=== PATIENT | female | born 1950 | race Caucasian/White ===

== ENCOUNTER → 2021-01-16 | Outpatient (CLI) | payer MEDICARE ==
--- NOTE | 2021-01-16 15:56 | CTL ---
EXAMINATION TYPE: CT Low Dose Lung DATE OF EXAM ORDERED: 01/16/2021 HISTORY: Personal tobacco use. Lung cancer screening CT DLP: [address] CTDI: 1.41 mGy Automated exposure control for dose reduction was used. SCREENING VISIT: Initial COMPARISON: None TECHNIQUE: Low dose computed tomography scan was performed through the chest at 1 mm thick sections a nd reconstructed images in the coronal plane at [address] DIAGNOSTIC QUALITY: Limited, but interpretable FINDINGS: LUNG NODULES: None. Bilateral apical thickening is present. LUNGS: COPD: Severity: None Fibrosis: Severity: None Lymph nodes: None Other findings: None RIGHT PLEURAL SPACE: Effusion: None Calcification: None Thickening: Mild anterior lower lobe thickening is present with adjacent stranding Pneumothorax: None LEFT PLEURAL SPACE: Effusion: None Calcification: None Thickening: Mild left pleural thickening is noted with some adjacent stranding. Pneumothorax: None HEART: Heart Size: Normal Coronary calcification: Mild Pericardial effusion: None OTHER FINDINGS: Upper abdomen: Normal Bony thorax: Normal Supraclavicular region: Normal Other: Ascending thoracic aorta at the level the main pulmonary artery measures 3.2 cm. The main pul monary artery at the bifurcation measures 2.2 cm. IMPRESSION: 1. Bilateral apical thickening can be related to scarring. Follow-up in 6 months to confirm stability . 2. Mild pleural thickening along the anterior lateral lung trujillo with some adjacent stranding. This could be reevaluated with a follow-up exam. FOLLOW UP CT CHEST RECOMMENDATION: Yes, follow-up standard CT chest with contrast [address] LUNG RAD: Lung-Rad 3 Probably Benign
== END | disposition home or self-care (01) ==
LOC: RADCTMAIN 13:22
PROVIDERS: ATTEND Family Medicine
DX: Z12.2 Encounter for screening for malignant neoplasm of respiratory organs (principal); J92.9 Pleural plaque without asbestos; F17.210 Nicotine dependence, cigarettes, uncomplicated
CPT/HCPCS: 71271

== ENCOUNTER 2021-02-07 21:57 | Emergency (ER) | payer MEDICARE ==
[2021-02-07 22:25] VITALS: TEMP 97.6
[2021-02-07 23:35] LABS: Appearance,Urine Clear (Clear); Color,Urine Yellow
[2021-02-07 23:36] LABS: Bilirubin,Urine Negative (Negative); Blood,Urine Negative (Negative); Glucose,Urine (UA) Negative (Negative); Ketones,Urine Negative (Negative); Leukocyte Esterase,Urine Negative (Negative); Nitrite,Urine Negative (Negative); PH, Urine 5.5 (5.0-8.0); Protein,Urine Negative (Negative); Specific Gravity,Urine 1.015 (1.001-1.035); Urobilinogen,Urine <2.0 mg/dL (<2.0)
--- NOTE | 2021-02-07 23:38 | CT ---
EXAMINATION TYPE: CT brain wo con DATE OF EXAM: 02/07/2021 COMPARISON: None HISTORY: Weakness CT DLP: 1088.40 mGycm Automated exposure control for dose reduction was used. Ventricles have normal size. There is no mass effect nor midline shift. There is no sign of intracran ial hemorrhage. The calvarium is intact. The skull base is intact. IMPRESSION: Negative unenhanced head CT scan no evidence of cortical infarct. No evidence of posterior fossa mass .
--- NOTE | 2021-02-07 23:40 | XR ---
EXAMINATION TYPE: XR chest 2V DATE OF EXAM: 02/07/2021 COMPARISON: NONE HISTORY: Weakness TECHNIQUE: 2 views FINDINGS: There is pulmonary hyperinflation with flattening of the diaphragm. Heart size is normal. T here is coarse interstitial infiltrate in the upper lobes. There is pleural thickening at the lung ap ices. There are no hilar masses. Bony thorax appears intact. There are clips from cholecystectomy. IMPRESSION: COPD and pulmonary fibrosis. Bilateral apical pleural and pulmonary scarring. No heart fa ilure. No definite acute lung disease.
--- NOTE | 2021-02-07 23:48 | ED ---
General Adult HPI - General Chief complaint: Recheck/Abnormal Lab/Rx Stated complaint: UTI Time Seen by Provider: 02/07/21 22:33 Source: patient Mode of arrival: wheelchair Limitations: no limitations - History of Present Illness Initial comments: This patient is 70-year-old woman who presents with complaint that she is been off balance when walking at times for the past week or so. The patient states it had come on last week. She did go and see her physician on Wednesday and was diagnosed with urinary tract infection and given course of ciprofloxacin. She states that even after taking the medication, she still feels off balance sometimes when she walks. The patient states that time she is able to walk normally, while at other times she feels like she is walking off to the side of where she is trying to go. She denies other problems with coordination. Denies other neurologic symptoms. She denies syncope or lightheadedness. Onset/Timin -: week(s) Severity scale (1-10): 0 Consistency: intermittent Improves with: none Worsens with: none Associated Symptoms: denies other symptoms - Related Data Allergies Allergy/AdvReac Type Severity Reaction Status Date / Time Sulfa (Sulfonamide Allergy Rash/Hives Verified 02/07/21 22:23 Antibiotics) Review of Systems ROS Statement: Those systems with pertinent positive or pertinent negative responses have been documented in the HPI. ROS Other: All systems not noted in ROS Statement are negative. Constitutional: Denies: fever, chills, weakness Eyes: Denies: eye pain, vision change ENT: Denies: ear pain, hearing loss Respiratory: Denies: cough Cardiovascular: Denies: chest pain, palpitations, orthopnea, edema, syncope Gastrointestinal: Denies: abdominal pain, nausea, vomiting Genitourinary: Denies: dysuria, hematuria Musculoskeletal: Denies: back pain Skin: Denies: rash Neurological: Reports: abnormal gait. Denies: headache, weakness, numbness, paresthesias, confusion, vertigo Past Medical History Past Medical History: Cancer, Hyperlipidemia Additional Past Medical History / Comment(s): Breast CA History of Any Multi-Drug Resistant Organisms: None Reported Past Surgical History: Appendectomy, Cholecystectomy, Heart Catheterization, Hernia Repair, Hysterectomy, Orthopedic Surgery, Tonsillectomy Additional Past Surgical History / Comment(s): breast lumpectomy Past Psychological History: No Psychological Hx Reported Smoking Status: Current some day smoker Past Alcohol Use History: None Reported Past Drug Use History: None Reported General Exam Limitations: no limitations General appearance: alert, in no apparent distress, cachectic Head exam: Present: atraumatic, normocephalic Eye exam: Present: normal appearance. Absent: scleral icterus, conjunctival injection Neck exam: Present: normal inspection, full ROM. Absent: tenderness Respiratory exam: Present: normal lung sounds bilaterally. Absent: respiratory distress, wheezes, rales, rhonchi, stridor Cardiovascular Exam: Present: regular rate, normal rhythm, normal heart sounds. Absent: systolic murmur, diastolic murmur, rubs, gallop GI/Abdominal exam: Present: soft. Absent: distended, tenderness, guarding, r ebound, rigid, mass Extremities exam: Present: normal inspection, normal capillary refill. Absent: pedal edema, calf tenderness Back exam: Present: normal inspection. Absent: CVA tenderness (R), CVA tenderness (L) Neurological exam: Present: alert, oriented X3, CN II-XII intact, normal gait. Absent: motor sensory deficit Skin exam: Present: warm, dry, intact, normal color. Absent: rash Course Vital Signs 02/07/21 02/08/21 22:18 01:00 Temperature 97.6 F Pulse Rate 60 66 Respiratory 16 24 Rate Blood Pressure 150/79 151/97 O2 Sat by Pulse 98 97 Oximetry EKG Findings - EKG Comments: EKG Findings:: Possible old anterior infarct. - EKG Results: EKG: interpreted by ERMJose Roberto, sinus rhythm (With PVCs, rate 64 bpm), normal axis, normal ST/T Medical Decision Making - Medical Decision Making Patient is 70-year-old woman who is occasionally having problems with feeling she is off balance when walking. She was able to ambulate to bathroom and back here. The workup is unremarkable. I did offer patient admission so that she could see neurology here, the patient states she would rather do this as an outpatient if that can be arranged. She will phoned her primary physician in morning and follow-up as soon as it can be arranged. Discussed return parameters. - Lab Data Result diagrams: 02/07/21 23:24 02/07/21 23:24 Lab Results 02/07/21 02/07/21 02/07/21 Range/Units 23:24 23:24 23:24 WBC 7.8 (3.8-10.6) k/uL RBC 4.03 (3.80-5.40) m/uL Hgb 13.7 (11.4-16.0) gm/dL Hct 41.0 (34.0-46.0) % MCV 101.8 H (80.0-100.0) fL MCH 33.9 (25.0-35.0) pg MCHC 33.3 (31.0-37.0) g/dL RDW 14.0 (11.5-15.5) % Plt Count 191 (150-450) k/uL MPV 8.8 Neutrophils % 53 % Lymphocytes % 37 % Monocytes % 6 % Eosinophils % 2 % Basophils % 1 % Neutrophils # 4.1 (1.3-7.7) k/uL Lymphocytes # 2.8 (1.0-4.8) k/uL Monocytes # 0.5 (0-1.0) k/uL Eosinophils # 0.1 (0-0.7) k/uL Basophils # 0.0 (0-0.2) k/uL Macrocytosis Slight Sodium 138 (137-145) mmol/L Potassium 4.4 (3.5-5.1) mmol/L Chloride 107 (98-107) mmol/L Carbon Dioxide 24 (22-30) mmol/L Anion Gap 7 mmol/L BUN 24 H (7-17) mg/dL Creatinine 1.15 H (0.52-1.04) mg/dL Est GFR (CKD-EPI)AfAm 56 (>60 ml/min/1.73 sqM) Est GFR (CKD-EPI)NonAf 49 (>60 ml/min/1.73 sqM) Glucose 89 (74-99) mg/dL Calcium 9.7 (8.4-10.2) mg/dL Magnesium 1.7 (1.6-2.3) mg/dL Total Bilirubin <0.1 L (0.2-1.3) mg/dL AST 20 (14-36) U/L ALT 13 (4-34) U/L Alkaline Phosphatase 60 (38-126) U/L Troponin I (0.000-0.034) ng/mL Total Protein 6.6 (6.3-8.2) g/dL Albumin 4.0 (3.5-5.0) g/dL TSH 6.190 H (0.465-4.680) mIU/L Urine Color Yellow Urine Appearance Clear (Clear) Urine pH 5.5 (5.0-8.0) Ur Specific Gleason 1.015 (1.001-1.035) Urine Protein Negative (Negative) Urine Glucose (UA) Negative (Negative) Urine Ketones Negative (Negative) Urine Blood Negative (Negative) Urine Nitrite Negative (Negative) Urine Bilirubin Negative (Negative) Urine Urobilinogen <2.0 (<2.0) mg/dL Ur Leukocyte Esterase Negative (Negative) 02/07/21 Range/Units 23:24 WBC (3.8-10.6) k/uL RBC (3.80-5.40) m/uL Hgb (11.4-16.0) gm/dL Hct (34.0-46.0) % MCV (80.0-100.0) fL MCH (25.0-35.0) pg MCHC (31.0-37.0) g/dL RDW (11.5-15.5) % Plt Count (150-450) k/uL MPV Neutrophils % % Lymphocytes % % Monocytes % % Eosinophils % % Basophils % % Neutrophils # (1.3-7.7) k/uL Lymphocytes # (1.0-4.8) k/uL Monocytes # (0-1.0) k/uL Eosinophils # (0-0.7) k/uL Basophils # (0-0.2) k/uL Macrocytosis Sodium (137-145) mmol/L Potassium (3.5-5.1) mmol/L Chloride (98-107) mmol/L Carbon Dioxide (22-30) mmol/L Anion Gap mmol/L BUN (7-17) mg/dL Creatinine (0.52-1.04) mg/dL Est GFR (CKD-EPI)AfAm (>60 ml/min/1.73 sqM) Est GFR (CKD-EPI)NonAf (>60 ml/min/1.73 sqM) Glucose (74-99) mg/dL Calcium (8.4-10.2) mg/dL Magnesium (1.6-2.3) mg/dL Total Bilirubin (0.2-1.3) mg/dL AST (14-36) U/L ALT (4-34) U/L Alkaline Phosphatase (38-126) U/L Troponin I <0.012 (0.000-0.034) ng/mL Total Protein (6.3-8.2) g/dL Albumin (3.5-5.0) g/dL TSH (0.465-4.680) mIU/L Urine Color Urine Appearance (Clear) Urine pH (5.0-8.0) Ur Specific Gleason (1.001-1.035) Urine Protein (Negative) Urine Glucose (UA) (Negative) Urine Ketones (Negative) Urine Blood (Negative) Urine Nitrite (Negative) Urine Bilirubin (Negative) Urine Urobilinogen (<2.0) mg/dL Ur Leukocyte Esterase (Negative) Disposition Clinical Impression: Gait abnormality Disposition: HOME SELF-CARE Condition: Good Instructions (If sedation given, give patient instructions): Fall Prevention for Older Adults (ED) Is patient prescribed a controlled substance at d/c from ED?: No Referrals: Prakash Gonzalez MD [Primary Care Provider] - 1-2 days Citlaly Saleem MD [STAFF PHYSICIAN] - 1-2 days
[2021-02-08 00:08] LABS: ALT 13 U/L (4-34); AST 20 U/L (14-36); African American GFR (CKD) 56 (>60 ml/min/1.73 sqM); Alkaline Phosphatase 60 U/L (38-126); Anion Gap 7 mmol/L; Blood Urea Nitrogen 24 mg/dL (7-17); Calcium 9.7 mg/dL (8.4-10.2); Carbon Dioxide 24 mmol/L (22-30); Chloride 107 mmol/L (98-107); Glucose 89 mg/dL (74-99); Magnesium 1.7 mg/dL (1.6-2.3); Non-African American GFR(CKD) 49 (>60 ml/min/1.73 sqM); Potassium 4.4 mmol/L (3.5-5.1); Sodium 138 mmol/L (137-145); Total Bilirubin <0.1 mg/dL (0.2-1.3); Total Protein 6.6 g/dL (6.3-8.2)
[2021-02-08 00:32] LABS: Basophils % (A) 1 %; Eosinophils # (A) 0.1 k/uL (0-0.7); Eosinophils % (A) 2 %; HGB 13.7 gm/dL (11.4-16.0); Lymphocytes # (A) 2.8 k/uL (1.0-4.8); Lymphocytes % (A) 37 %; MCH 33.9 pg (25.0-35.0); MCHC 33.3 g/dL (31.0-37.0); MCV 101.8 fL (80.0-100.0); Macrocytosis Slight; Mean Platelet Volume 8.8; Monocytes # (A) 0.5 k/uL (0-1.0); Monocytes % (A) 6 %; Neutrophils # (A) 4.1 k/uL (1.3-7.7); Neutrophils % (A) 53 %; Platelet Count 191 k/uL (150-450); RBC 4.03 m/uL (3.80-5.40); WBC 7.8 k/uL (3.8-10.6)
[2021-02-08] MEDS ORDERED: SODIUM CHLORIDE 0.9% 500 ML 500 ML IV STA (01:06)
[2021-02-08 01:48] VITALS: BP 151/97; PULSE 66; RESP 24
== END 2021-02-08 02:34 | disposition home or self-care (01) ==
LOC: EC 21:57
DX: R26.9 Unspecified abnormalities of gait and mobility (principal); E78.5 Hyperlipidemia, unspecified; F17.200 Nicotine dependence, unspecified, uncomplicated; Z88.2 Allergy status to sulfonamides; Z85.3 Personal history of malignant neoplasm of breast
CPT/HCPCS: 36415; 70450; 71046; 80053; 81003; 83735; 84443; 84484; 85025; 93005; 99284

== ENCOUNTER → 2021-03-04 | Outpatient (CLI) | payer MEDICARE ==
--- NOTE | 2021-03-04 10:36 | CT ---
EXAMINATION TYPE: CT cervical spine wo con DATE OF EXAM: 03/04/2021 COMPARISON: NONE HISTORY: Cervicalgia and cervical radiculopathy. History of [address] DLP: 302.5 mGycm. Automated Exposure Control for Dose Reduction was Utilized. TECHNIQUE: CT scan of the cervical spine is obtained without contrast, axial images are obtained, sa gittal and coronal reformatted images are also reviewed. FINDINGS: Cervical spine is visualized in its entirety from C1 through upper thoracic levels, demonst rates slight levoconvex scoliotic curvature centered upper thoracic spine without evidence of acute f racture or dislocation. Prevertebral soft tissue appears within normal limits. The C1-C2 articulati on is within normal limits on the coronal images. Marked narrowing of the atlantodental interval. Pos terior longitudinal ligament thickening and calcification effaces the anterior thecal sac. Anterior f usion device at C3-C4 level with slight grade 1 retrolisthesis C3 on C4 lung posterior vertebral body margin. Moderate disc space narrowing at this level noted. There is ossific fusion of the C4-C6 vert ebra. Posterior bony projection effaces anterior thecal sac at C5-C6 level sagittal image 47. There i s anterior fusion hardware C6-C7 level with vacuum disc phenomenon and moderate disc space narrowing. Review of axial images at C2-C3 level shows uncovertebral facet degenerative changes bilaterally more pronounced on the right causing moderate to advanced right-sided neural foraminal narrowing. Axial images at C3-C4 level shows uncovertebral facet degenerative changes and marginal spurring bila terally causing moderate to severe bilateral neural foraminal narrowing. Posterior bony projections e ffaces anterior thecal sac. Axial images at C4-C5 level show mild effacement of thecal sac due to posterior bony projections, pat ent bilateral neural foramina. Axial images at C5-C6 level show more prominent left paracentral/foraminal bony projections causing m oderate left-sided neural foraminal narrowing or axial image 57. Axial images at C6-C7 level show posterior and marginal bony projections, there is anterior fusion gaona rdware. There is mild bilateral neural foraminal narrowing. Axial images at C7-T1 level show partial visualization of anterior fusion hardware. Spinal canal is p reserved. Neural foramina are patent. Thyroid gland somewhat small in size. Lung apices show moderate to advanced emphysematous change with fairly advanced pleural/parenchymal scarring that extends laterally on the right with hyperdense mat erial possible calcifications. Moderate calcified plaque bilateral carotid bulb level is present. IMPRESSION: Ossific fusion C4-C6 level with satisfactory straightened alignment. Postsurgical changes C3-C4 and C6-C7 level. Multilevel degenerative changes as detailed above.
--- NOTE | 2021-03-04 11:17 | CT ---
EXAMINATION TYPE: CT lumbar spine wo con DATE OF EXAM: 03/04/2021 9:18 AM COMPARISON: None. HISTORY: Radiculopathy CT DLP: 394.5 mGycm Automated exposure control for dose reduction was used. Unenhanced CT of the lumbar spine was performed. Bone and soft tissue window settings are submitted as well as coronal and sagittal reconstructions. There are 5 lumbar-type vertebra. There is metallic disc material L5-S1 level. There are posterior ro ds and screws L5-S1 level. Slight levoconvex scoliotic curvature centered lumbosacral junction noted. Vertebral body heights are maintained. Mild multilevel anterior and lateral spurring is seen. Axial images show T12-L1 and L1-L2 levels appear within normal limits. Axial images at L2-L3 level are also felt within normal limits. Axial images at L3-L4 level show mild to moderate broad-based disc bulge mildly effacing the anterior thecal sac. There is mild facet arthropathy and ligamentous hypertrophy present effacing the posteri or lateral thecal sac. There is mild right and [id number] left-sided anterior inferior neural f oraminal narrowing. Axial images at L4-L5 level show mild facet arthropathy with more prominent ligamentum flavum hypertr ophy. There is moderate broad disc bulge. There is effacement of the anterior and posterior lateral t hecal sac causing spinal canal stenosis at axial image 53. There is [id number] left and moder ate right-sided anterior inferior neural foraminal narrowing. Axial images at L5-S1 level show posterior decompression. There is artifact from metallic hardware. T here is moderate greater than right facet arthropathy. There is artificial disc material. Successful posterior decompression noted. Patent bilateral neural foramina with mild narrowing. Adjacent two thin-walled cyst upper pole of left kidney are noted. There is prominent thin-walled cys t lower pole of the right kidney. Mild to moderate calcified plaque common iliac arterial bifurcation . Surgical clips right pelvic or inguinal region on localizer. IMPRESSION: Postsurgical change L5-S1 level. Successful posterior decompression. Slight scoliotic cur vature. Most prominent degenerative change including spinal canal effacement and/or stenosis L4-L5 le yovany. Further details as discussed above.
== END | disposition home or self-care (01) ==
LOC: RADCTMAIN 08:20
PROVIDERS: ATTEND Family Medicine
DX: M47.22 Other spondylosis with radiculopathy, cervical region (principal); M99.71 Connective tissue and disc stenosis of intervertebral foramina of cervical region; M48.061 Spinal stenosis, lumbar region without neurogenic claudication; M47.27 Other spondylosis with radiculopathy, lumbosacral region; M99.73 Connective tissue and disc stenosis of intervertebral foramina of lumbar region; Z98.1 Arthrodesis status
CPT/HCPCS: 72125; 72131

== ENCOUNTER → 2021-05-21 | Outpatient (CLI) | payer MEDICARE ==
--- NOTE | 2021-05-22 04:09 | MR ---
EXAMINATION TYPE: MR anastasiia/lspine wo con DATE OF EXAM: 05/21/2021 COMPARISON: CT scan 03/04/2021 HISTORY: Neck pain 10 years, low back pain, headaches, weakness, and falls for 4 months Multiplanar multiecho imaging of the cervical spine without contrast. The cervical vertebra have normal alignment. There is fusion surgery at C4-5 and C5-C6. There is obli teration of the disc spaces. There is endplate spur formation and facet arthropathy with cervical spi nal stenosis at C to 3 and C3-4. There is some flattening of the spinal cord. Canal measures 4.5 mm a t C to 3. The canal measures 3.5 mm at C3-4. There is no significant edema and the cord. Canal measur es 6 mm at C6-7. There is no compression fracture. There is no cervical paraspinal mass. The brainste m appears intact. IMPRESSION: Multilevel fusion surgery. No change compared to old exam. Moderately severe cervical bony spinal reza nosis at C to 3 and C3-4. There is less severe stenosis at C6-7. No fracture. MR scan of the lumbar spine. Multiplanar multiecho imaging of the lumbar spine without contrast. Lumbar vertebra have normal alignment. There is metal artifact in posterior fusion surgery at L5-S1. There is facet arthropathy at L4-5. There appears to be significant spinal stenosis at L4-5. Canal is somewhat obscured by metal artifact. There is a small posterior disc herniation at L5-S1. There is n o lumbar compression fracture. There is bilateral L4-5 and L5-S1 neural foraminal narrowing. IMPRESSION: There appears to be significant facet arthropathy at L4-5 and resultant very severe spinal stenosis. There is a small posterior disc herniation at L4-5 and L5-S1. No compression fracture.
== END | disposition home or self-care (01) ==
LOC: RADMRIMAIN 19:41
PROVIDERS: ATTEND Orthopaedic Surgery
DX: M47.816 Spondylosis without myelopathy or radiculopathy, lumbar region (principal); M48.02 Spinal stenosis, cervical region; M51.26 Other intervertebral disc displacement, lumbar region; M48.061 Spinal stenosis, lumbar region without neurogenic claudication
CPT/HCPCS: 72141; 72148

== ENCOUNTER 2021-08-16 18:10 | Inpatient (IN) | payer MEDICARE ==
[2021-08-16] MEDS ORDERED: HYDROmorphone 1 MG/ML 1 ML SYRINGE IVP STA (18:39)
[2021-08-16 19:17] LABS: Basophils % (A) 0 %; Eosinophils % (A) 0 %; HCT 39.3 % (34.0-46.0); HGB 12.7 gm/dL (11.4-16.0); Lymphocytes # (A) 1.7 k/uL (1.0-4.8); Lymphocytes % (A) 24 %; MCH 31.9 pg (25.0-35.0); MCHC 32.5 g/dL (31.0-37.0); MCV 98.2 fL (80.0-100.0); Mean Platelet Volume 8.6; Monocytes # (A) 0.4 k/uL (0-1.0); Monocytes % (A) 6 %; Neutrophils # (A) 4.8 k/uL (1.3-7.7); Neutrophils % (A) 67 %; Platelet Count 224 k/uL (150-450); RDW 14.7 % (11.5-15.5); WBC 7.2 k/uL (3.8-10.6)
[2021-08-16 19:22] LABS: Albumin 3.9 g/dL (3.5-5.0); Calcium 9.2 mg/dL (8.4-10.2); Potassium 4.5 mmol/L (3.5-5.1); Total Bilirubin 0.7 mg/dL (0.2-1.3); Total Protein 6.9 g/dL (6.3-8.2)
[2021-08-16 19:27] LABS: INR 0.9 (<1.2)
--- NOTE | 2021-08-16 19:36 | ED ---
General Adult HPI - General Chief complaint: Fall Stated complaint: Fall/rib pain Time Seen by Provider: 08/16/21 18:29 Source: patient, RN notes reviewed, old records reviewed Mode of arrival: ambulatory Limitations: no limitations - History of Present Illness Initial comments: 70-year-old female presents for left chest wall pain status post fall which occurred yesterday. Patient has had pain at the site of injury with mild dyspnea. She does have history of COPD. She denies anticoagulation. She denies head injury. She states she fell and hit the side of her nightstand. - Related Data Home Medications Medication Instructions Recorded Confirmed Atorvastatin [Lipitor] 40 mg PO DAILY 08/16/21 08/16/21 HYDROcodone/APAP 7.5-325MG [Davis 1 tab PO Q12H PRN 08/16/21 08/16/21 7.5-325] Isosorbide Mononitrate ER [Imdur] 30 mg PO DAILY 08/16/21 08/16/21 Levothyroxine Sodium [Synthroid] 50 mcg PO DAILY 08/16/21 08/16/21 Loperamide [Imodium] 2 mg PO BID PRN 08/16/21 08/16/21 Metoprolol Succinate (ER) [Toprol 25 mg PO DAILY 08/16/21 08/16/21 Xl] Omeprazole 40 mg PO DAILY 08/16/21 08/16/21 Pregabalin [Lyrica] 100 mg PO BID 08/16/21 08/16/21 busPIRone HCl [Buspar] 5 mg PO BID PRN 08/16/21 08/16/21 Allergies Allergy/AdvReac Type Severity Reaction Status Date / Time Sulfa (Sulfonamide Allergy Rash/Hives Verified 08/16/21 19:19 Antibiotics) Review of Systems ROS Statement: Those systems with pertinent positive or pertinent negative responses have been documented in the HPI. ROS Other: All systems not noted in ROS Statement are negative. Past Medical History Past Medical History: Coronary Artery Disease (CAD), Cancer, Hyperlipidemia Additional Past Medical History / Comment(s): Breast CA History of Any Multi-Drug Resistant Organisms: None Reported Past Surgical History: Appendectomy, Cholecystectomy, Heart Catheterization, Hernia Repair, Hysterectomy, Orthopedic Surgery, Tonsillectomy Additional Past Surgical History / Comment(s): breast lumpectomy Past Psychological History: No Psychological Hx Reported Smoking Status: Current every day smoker Past Alcohol Use History: None Reported Past Drug Use History: None Reported General Exam Limitations: no limitations General appearance: alert, in no apparent distress Head exam: Present: atraumatic, normocephalic Eye exam: Present: normal appearance, PERRL ENT exam: Present: normal exam Neck exam: Present: normal inspection. Absent: tenderness, meningismus Respiratory exam: Present: chest wall tenderness, other (Left posterior lateral flail chest) Cardiovascular Exam: Present: regular rate, normal rhythm GI/Abdominal exam: Present: soft. Absent: distended, tenderness Extremities exam: Present: normal inspection, normal capillary refill. Absent: pedal edema Neurological exam: Present: alert, oriented X3, CN II-XII intact. Absent: motor sensory deficit Psychiatric exam: Present: normal affect, normal mood Skin exam: Present: warm, dry, intact. Absent: cyanosis, diaphoretic Course Vital Signs 08/16/21 08/16/21 08/16/21 18:25 18:38 18:50 Temperature 98.9 F Pulse Rate 86 90 Respiratory 22 22 20 Rate Blood Pressure 150/61 130/62 O2 Sat by Pulse 91 L 94 L Oximetry Medical Decision Making - Medical Decision Making 70-year-old female with fall occurred yesterday, left posterior lateral chest w all pain. On exam patient has full chest with paradoxical movement. There is no respiratory distress. Vital signs are stable. Chest x-ray shows multiple consecutive rib fractures left posterior chest wall. CT is performed which shows a small pneumothorax as well as multiple rib fractures consistent with flail chest. She is placed on a nonrebreather. She will be admitted for pain control and evaluation by both pulmonology and cardiothoracic surgery. Discussed case with the roll scale man Dr. Rosario and the admitting physician Dr. Banks covering for trauma. - Lab Data Result diagrams: 08/16/21 18:57 08/16/21 18:57 Lab Results 08/16/21 08/16/21 08/16/21 Range/Units 18:57 18:57 18:57 WBC 7.2 (3.8-10.6) k/uL RBC 4.00 (3.80-5.40) m/uL Hgb 12.7 (11.4-16.0) gm/dL Hct 39.3 (34.0-46.0) % MCV 98.2 (80.0-100.0) fL MCH 31.9 (25.0-35.0) pg MCHC 32.5 (31.0-37.0) g/dL RDW 14.7 (11.5-15.5) % Plt Count 224 (150-450) k/uL MPV 8.6 Neutrophils % 67 % Lymphocytes % 24 % Monocytes % 6 % Eosinophils % 0 % Basophils % 0 % Neutrophils # 4.8 (1.3-7.7) k/uL Lymphocytes # 1.7 (1.0-4.8) k/uL Monocytes # 0.4 (0-1.0) k/uL Eosinophils # 0.0 (0-0.7) k/uL Basophils # 0.0 (0-0.2) k/uL PT 10.0 (9.0-12.0) sec INR 0.9 (<1.2) APTT 25.0 (22.0-30.0) sec Sodium 136 L (137-145) mmol/L Potassium 4.5 (3.5-5.1) mmol/L Chloride 103 (98-107) mmol/L Carbon Dioxide 24 (22-30) mmol/L Anion Gap 9 mmol/L BUN 26 H (7-17) mg/dL Creatinine 0.99 (0.52-1.04) mg/dL Est GFR (CKD-EPI)AfAm 67 (>60 ml/min/1.73 sqM) Est GFR (CKD-EPI)NonAf 59 (>60 ml/min/1.73 sqM) Glucose 149 H (74-99) mg/dL Calcium 9.2 (8.4-10.2) mg/dL Total Bilirubin 0.7 (0.2-1.3) mg/dL AST 26 (14-36) U/L ALT 14 (4-34) U/L Alkaline Phosphatase 61 (38-126) U/L Total Protein 6.9 (6.3-8.2) g/dL Albumin 3.9 (3.5-5.0) g/dL Critical Care Time Critical Care Time: Yes Total Critical Care Time: 35 Disposition Clinical Impression: Flail chest, Pneumothorax Disposition: ADMITTED IP TO THIS HOSP Condition: Serious Is patient prescribed a controlled substance at d/c from ED?: No Referrals: Prakash Gonzalez MD [Primary Care Provider] - 1-2 days Decision to Admit Reason: Admit from EC Decision Date: 08/16/21 Decision Time: 20:22
--- NOTE | 2021-08-16 20:00 | CT ---
EXAMINATION TYPE: CT chest wo con DATE OF EXAM: 08/16/2021 COMPARISON: Left-sided rib pain HISTORY: left side rib pain CT DLP: 137.2 mGycm Automated exposure control for dose reduction was used. Images obtained from the thoracic inlet to the diaphragm without contrast. There is a very small left-sided pneumothorax seen at the anterior chest wall. There is some patchy a telectasis and linear infiltrate in the lingula left upper lobe. There is pleural thickening and scar ring at both lung apices. There is pulmonary emphysema. There is coronary artery calcification. There is multiple left-sided rib fractures involving 8,9,10 and 11 ribs. There is comminution of the rib f ractures. There is displacement up to 100% with some overriding. The thoracic spine is intact. There is no compression fracture. Sternum is intact. IMPRESSION: Multiple left-sided rib fractures with comminution and flail chest. Small left-sided pneumothorax juli roximately 10%. Infiltrate and atelectasis in the lingula left upper lobe. Bilateral upper lobe pleur al and pulmonary scarring. Pulmonary emphysema.
[2021-08-16] MEDS ORDERED: IPRATROPIUM-ALBUTEROL 3 ML NEB INHALATION PRN (20:14)
[2021-08-16] MEDS ORDERED: ACETAMINOPHEN TAB 325 MG TAB PO PRN (20:14)
[2021-08-16] MEDS ORDERED: NALOXONE 0.4 MG/ML 1 ML VIAL IV PRN (20:14)
[2021-08-17] MEDS: HYDROmorphone 1 MG/ML 1 ML SYRINGE IVP PRN ×10 (00:49→21:03)
--- NOTE | 2021-08-17 07:40 | XR ---
EXAMINATION TYPE: XR chest 1V DATE OF EXAM: 08/17/2021 HISTORY: Shortness of breath. COMPARISON: 08/16/2021 TECHNIQUE: Single view of the chest is submitted. FINDINGS: Demonstrated are scattered senescent parenchymal change. New left lower lobe infiltrate with small effusion. Multiple left-sided rib fractures identified. Rig ht apical opacity persists. The heart is stable. Hilar and mediastinal structures are within normal limits. Degenerative changes are seen of the dorsal spine. IMPRESSION: 1. New left lower lobe infiltrate with small effusion. Multiple left-sided rib fractures identified. Right apical opacity persists.
[2021-08-17 07:49] LABS: Glucose,Whole Blood 85 mg/dL (75-99)
[2021-08-17] MEDS ORDERED: busPIRone HCl 5 MG TAB PO PRN (08:47)
[2021-08-17] MEDS: PREGABALIN 100 MG CAP PO SCH ×2 (09:55→20:04)
[2021-08-17] MEDS: METOPROLOL SUCCINATE (ER) 25 MG TAB.ER.24H PO SCH (09:55)
[2021-08-17] MEDS: HYDROcodone/APAP 7.5-325MG 1 EACH TAB PO PRN (09:55)
[2021-08-17] MEDS: LEVOTHYROXINE 50 MCG TAB PO SCH (09:55)
[2021-08-17] MEDS: ISOSORBIDE MONONITRATE ER 30 MG TAB.ER.24H PO SCH (09:55)
[2021-08-17] MEDS: ATORVASTATIN 40 MG TAB PO SCH (09:55)
[2021-08-17] MEDS: PANTOPRAZOLE 40 MG TABLET PO SCH (09:55)
--- NOTE | 2021-08-17 11:02 | P.GSCN ---
History of Present Illness Consult date: 08/17/21 Reason for Consult: Status post fall with acute left-sided rib fractures and Flail chest Requesting physician: Oscar Angelo History of present illness: This 70-year-old female patient who is followed by Dr. Prakash Gonzalez for her primary care service on an outpatient basis. she has a past medical history significant for thyroid disorder, COPD, breast cancer, status post lumpectomy and radiation, chronic ongoing nicotine dependence smokes about one fourth of a pack of cigarettes per day, irritable bowel syndrome, hyperlipidemia, chronic back pain, GERD, and nighttime oxygen dependence of 4 L nasal cannula. On 08/15/2021 the patient reports while trying to get out of bed she slipped and fell and hit her left chest on her bedside nightstand. She denies any loss of consciousness or hitting her head. She also denies any recent fever, chills, nausea, vomiting, constipation, headache, hemoptysis, hematemesis, presyncope, syncope or palpitations. On admission to the hospital the patient underwent a computed tomography scan of her chest without contrast which demonstrated multiple left-sided rib fractures involving ribs 8, 9, 10 and 11 with flail chest and a small left-sided pneumothorax of around 10%. It also demonstrated bilateral upper lobe pleural pulmonary scarring. The patient also underwent a chest x-ray this morning which demonstrates a new left lower infiltrate with small effusion with multiple left-sided rib fractures and a right apical scarring. Subsequently due to the patient's presenting symptoms and findings of left-sided rib fractures with a small pneumothorax a consult was placed to cardiothoracic surgery for further evaluation and treatment recommendations. Review of Systems A 14 point review of systems was completed and was negative except as mentioned in HPI. Past Medical History Past Medical History: Coronary Artery Disease (CAD), Cancer, COPD, Hyperlipidemia, Thyroid Disorder Additional Past Medical History / Comment(s): Breast CA, hypothyroid, IBS, chronic hypoxic resp failure on 4 liters/min, Ansley thyroiditis, thoracic scoliosis History of Any Multi-Drug Resistant Organisms: None Reported Past Surgical History: Appendectomy, Cholecystectomy, Heart Catheterization, Hernia Repair, Hysterectomy, Orthopedic Surgery, Tonsillectomy Additional Past Surgical History / Comment(s): breast lumpectomy Past Anesthesia/Blood Transfusion Reactions: No Reported Reaction Past Psychological History: No Psychological Hx Reported Smoking Status: Current every day smoker Past Alcohol Use History: None Reported Past Drug Use History: None Reported - Past Family History Mother Family Medical History: Cancer (Breast cancer) Father Family Medical History: Cancer (Lung cancer) Medications and Allergies Home Medications Medication Instructions Recorded Confirmed Type Atorvastatin [Lipitor] 40 mg PO DAILY 08/16/21 08/16/21 History HYDROcodone/APAP 7.5-325MG [[place] 1 tab PO Q12H PRN 08/16/21 08/16/21 History 7.5-325] Isosorbide Mononitrate ER [Imdur] 30 mg PO DAILY 08/16/21 08/16/21 History Levothyroxine Sodium [Synthroid] 50 mcg PO DAILY 08/16/21 08/16/21 History Loperamide [Imodium] 2 mg PO BID PRN 08/16/21 08/16/21 History Metoprolol Succinate (ER) [Toprol 25 mg PO DAILY 08/16/21 08/16/21 History Xl] Omeprazole 40 mg PO DAILY 08/16/21 08/16/21 History Pregabalin [Lyrica] 100 mg PO BID 08/16/21 08/16/21 History busPIRone HCl [Buspar] 5 mg PO BID PRN 08/16/21 08/16/21 History Allergies Allergy/AdvReac Type Severity Reaction Status Date / Time Sulfa (Sulfonamide Allergy Rash/Hives Verified 08/16/21 19:19 Antibiotics) Surgical - Exam Vital Signs Temp Pulse Resp BP Pulse Ox 98.9 F 86 22 150/61 91 L 08/16/21 18:25 08/16/21 18:25 08/16/21 18:25 08/16/21 18:25 08/16/21 18:25 - General This is a pleasant 70-year-old female patient who is in no acute apparent distress. Awake and alert and oriented 3. Lying in bed in the intensive care unit. no distress, moderate pain (Left chest discomfort and tenderness with palpation), cachectic - Eyes PERRL, normal ocular movement, no pale, no icteric, no deviation - ENT normal pinna, normal nares, normal mucosa, no hearing loss, no congestion, dentures (Upper plate) - Neck Neck is supple, no lymphadenopathy. no masses, no bruits, trachea midline, no venous distension - Respiratory Lung sounds essentially clear throughout, diminished to her left lower lobe. Left posterior lateral flail chest with paradoxical movement. Oxygen saturations are 93% on room air and 95% on 12 L high flow nasal cannula. She is achieving 500 mL on her incentive spirometry with encouragement. - Cardiovascular Regular rhythm and rate. S1 and S2 present, negative for S3, gallop or murmur. Remote telemetry showing normal sinus rhythm heart rate 85 BPM. No edema present. - Abdomen Abdomen is soft, nontender and nondistended. Active bowel sounds present all 4 abdominal quadrants. No guarding or rigidity. No organomegaly appreciated. - Integumentary Skin is warm and dry. No clubbing or cyanosis is present. no rash, no growths, no abnormal pigmentation - Neurologic normal coordination, normal sensation - Musculoskeletal Equal strength bilaterally. - Psychiatric oriented to time, oriented to person, oriented to place, speech is normal, memory intact Results - Labs 08/16/21 18:57 08/16/21 18:57 Abnormal Lab Results - Last 24 Hours (Table) 08/16/21 Range/Units 18:57 Sodium 136 L (137-145) mmol/L BUN 26 H (7-17) mg/dL Glucose 149 H (74-99) mg/dL Diabetes panel 08/16/21 Range/Units 18:57 Sodium 136 L (137-145) mmol/L Potassium 4.5 (3.5-5.1) mmol/L Chloride 103 (98-107) mmol/L Carbon Dioxide 24 (22-30) mmol/L BUN 26 H (7-17) mg/dL Creatinine 0.99 (0.52-1.04) mg/dL Glucose 149 H (74-99) mg/dL Calcium 9.2 (8.4-10.2) mg/dL AST 26 (14-36) U/L ALT 14 (4-34) U/L Alkaline Phosphatase 61 (38-126) U/L Total Protein 6.9 (6.3-8.2) g/dL Albumin 3.9 (3.5-5.0) g/dL Calcium panel 08/16/21 Range/Units 18:57 Calcium 9.2 (8.4-10.2) mg/dL Albumin 3.9 (3.5-5.0) g/dL Pituitary panel 08/16/21 Range/Units 18:57 Sodium 136 L (137-145) mmol/L Potassium 4.5 (3.5-5.1) mmol/L Chloride 103 (98-107) mmol/L Carbon Dioxide 24 (22-30) mmol/L BUN 26 H (7-17) mg/dL Creatinine 0.99 (0.52-1.04) mg/dL Glucose 149 H (74-99) mg/dL Calcium 9.2 (8.4-10.2) mg/dL Adrenal panel 08/16/21 Range/Units 18:57 Sodium 136 L (137-145) mmol/L Potassium 4.5 (3.5-5.1) mmol/L Chloride 103 (98-107) mmol/L Carbon Dioxide 24 (22-30) mmol/L BUN 26 H (7-17) mg/dL Creatinine 0.99 (0.52-1.04) mg/dL Glucose 149 H (74-99) mg/dL Calcium 9.2 (8.4-10.2) mg/dL Total Bilirubin 0.7 (0.2-1.3) mg/dL AST 26 (14-36) U/L ALT 14 (4-34) U/L Alkaline Phosphatase 61 (38-126) U/L Total Protein 6.9 (6.3-8.2) g/dL Albumin 3.9 (3.5-5.0) g/dL - Imaging Chest x-ray: report reviewed, image reviewed CT scan - chest: report reviewed, image reviewed Assessment and Plan Assessment: 1. Fall from standing, with acute left-sided rib fractures, flail chest and lef t-sided pneumothorax 2. Left-sided chest pain secondary to above 3. History of COPD 4. Thyroid disorder 5. Hyperlipidemia 6. History of breast cancer status post lumpectomy and radiation treatments 7. Chronic ongoing nicotine dependence 8. Irritable bowel syndrome 9. Chronic back pain 10. Chronic hypoxic respiratory failure on 4 L/m oxygen at night 11. History of GERD Plan: The patient was seen and examined under bedside in the intensive care unit. Her chart and diagnostics were reviewed. Her case was discussed in detail with Dr. Rupesh Renee from cardiothoracic surgery. No class I indication for surgery at this time. Continue pain control per current when necessary orders. Continue to monitor daily chest x-rays. Encourage use of her incentive spirometry 10 times every hour while awake. Increase activity as tolerated, out of bed for all meals. The importance of smoking cessation was discussed in detail with the patient. Medical management other comorbidities per primary care service and other consultants. Thank you for this consult and we will look forward to working with you in the care of this patient. I have personally seen and examined the patient, performed the documentation and the assessment and plan as written. Number of minutes spent on the visit: 30.
--- NOTE | 2021-08-17 12:46 | P.CNPUL ---
History of Present Illness Consult date: 08/17/21 Reason for consult: dyspnea, pneumothorax History of present illness: 70-year-old female patient, known history of COPD, known history of breast cancer with a previous lumpectomy and radiation therapy which is caused a right apical scar which is heavily calcified on CAT scan of the chest. The patient continues to smoke cigarettes. The patient has irritable bowel syndrome, hyperlipidemia, chronic back pain and scoliosis of the thoracic spine. The patient is on oxygen at 4 L per minute nasal cannula. The patient came into the ED yesterday after she had a fall. She was trying to get out of bed and she slept and she fell and hit her left side of the chest at the nightstand. She became short of breath and she end up coming in to the hospital for further evaluation. No head trauma and no loss of consciousness. CAT scan of the chest showed for broken on the left including the 11th 10th nights and eighth ribs and the patient had some limited flail chest activity and the left lateral chest area and the patient had a small left-sided pneumothorax. No chest tube was inserted. The patient was admitted to the intensive care unit where he was placed on 100% on a beta facemask and currently she is being weaned down to nasal cannula. Pain is under good control for now. She'll be started on [place] for pain control. She is using incentive spirometer. No other complaints otherwise for now. Repeat chest x-ray from today shows development of a small effusion left lung base along with some atelectasis. No sizable pneumothorax on today's evaluation. The patient is currently on 5 L about 2 by nasal cannula with a pulse ox ranging between 94-97%. Review of Systems Constitutional: Denies chills, Denies fever Eyes: denies as per HPI, denies blurred vision, denies bulging eye, denies decreased vision, denies diplopia, denies discharge, denies dry eye, denies irritation, denies itching, denies pain, denies photophobia, denies loss of peripheral vision, denies loss of vision, denies tunnel vision/blind spots Ears: deny: decreased hearing, ear discharge, earache, tinnitus Ears, nose, mouth and throat: Reports as per HPI Breasts: absent: as per HPI, change in shape, gynecomastia, masses, nipple discharge, pain, skin changes, swelling Cardiovascular: Reports chest pain, Reports decreased exercise tolerance, Reports dyspnea on exertion Respiratory: Reports cough with sputum Gastrointestinal: Reports as per HPI Genitourinary: Reports as per HPI Menstruation: Reports as per HPI Musculoskeletal: Reports as per HPI Musculoskeletal: absent: ankle pain, ankle stiffness, ankle swelling, as per HPI, elbow pain, elbow stiffness, elbow swelling, foot pain, foot stiffness, foot swelling, hand pain, hand stiffness, hand swelling, hip pain, hip stiffness, hip swelling, knee pain, knee stiffness, knee swelling, shoulder pain, shoulder stiffness, shoulder swelling, wrist pain, wrist stiffness, wrist swelling Integumentary: Reports as per HPI Neurological: Reports as per HPI Psychiatric: Reports as per HPI Endocrine: Reports as per HPI Hematologic/Lymphatic: Reports as per HPI Allergic/Immunologic: Reports as per HPI Past Medical History Past Medical History: Coronary Artery Disease (CAD), Cancer, COPD, Hyperlipi demia, Thyroid Disorder Additional Past Medical History / Comment(s): Breast CA, hypothyroid, IBS, chronic hypoxic resp failure on 4 liters/min, [place] thyroiditis, thoracic scoliosis History of Any Multi-Drug Resistant Organisms: None Reported Past Surgical History: Appendectomy, Cholecystectomy, Heart Catheterization, Hernia Repair, Hysterectomy, Orthopedic Surgery, Tonsillectomy Additional Past Surgical History / Comment(s): breast lumpectomy Past Psychological History: No Psychological Hx Reported Smoking Status: Current every day smoker Past Alcohol Use History: None Reported Past Drug Use History: None Reported - Past Family History Mother Family Medical History: Cancer (Breast cancer) Father Family Medical History: Cancer (Lung cancer) Medications and Allergies Home Medications Medication Instructions Recorded Confirmed Type Atorvastatin [Lipitor] 40 mg PO DAILY 08/16/21 08/16/21 History HYDROcodone/APAP 7.5-325MG [[place] 1 tab PO Q12H PRN 08/16/21 08/16/21 History 7.5-325] Isosorbide Mononitrate ER [Imdur] 30 mg PO DAILY 08/16/21 08/16/21 History Levothyroxine Sodium [Synthroid] 50 mcg PO DAILY 08/16/21 08/16/21 History Loperamide [Imodium] 2 mg PO BID PRN 08/16/21 08/16/21 History Metoprolol Succinate (ER) [Toprol 25 mg PO DAILY 08/16/21 08/16/21 History Xl] Omeprazole 40 mg PO DAILY 08/16/21 08/16/21 History Pregabalin [Lyrica] 100 mg PO BID 08/16/21 08/16/21 History busPIRone HCl [Buspar] 5 mg PO BID PRN 08/16/21 08/16/21 History Allergies Allergy/AdvReac Type Severity Reaction Status Date / Time Sulfa (Sulfonamide Allergy Rash/Hives Verified 08/16/21 19:19 Antibiotics) Physical Exam Vitals: Vital Signs Temp Pulse Resp BP Pulse Ox 08/17/21 08:23 98 08/17/21 08:00 74 17 154/92 98 08/17/21 07:50 99.2 F 75 22 154/92 97 08/17/21 07:45 94 L 08/17/21 07:25 61 18 100 08/17/21 06:00 68 16 151/7 99 08/17/21 05:00 76 18 98 08/17/21 04:00 68 16 147/100 98 08/17/21 03:00 67 18 143/76 98 08/17/21 02:00 62 16 145/73 99 08/17/21 01:00 58 L 20 148/89 99 08/17/21 00:00 59 L 18 170/87 99 08/16/21 23:00 66 20 146/78 100 08/16/21 22:00 60 22 141/73 99 08/16/21 21:05 100 08/16/21 21:00 59 L 22 170/89 100 08/16/21 18:50 90 20 130/62 94 L 08/16/21 18:38 22 08/16/21 18:25 98.9 F 86 22 150/61 91 L Intake and Output 08/16/21 08/17/21 08/17/21 22:59 06:59 14:59 Other: # Voids 1 Weight 43.091 kg This is a pleasant 70-year-old female patient who is in no acute apparent distress. Awake and alert and oriented 3. Lying in bed in the intensive care unit. no distress, moderate pain (Left chest discomfort and tenderness with palpation), cachectic - Eyes PERRL, normal ocular movement, no pale, no icteric, no deviation - ENT normal pinna, normal nares, normal mucosa, no hearing loss, no congestion, dentures (Upper plate) - Neck Neck is supple, no lymphadenopathy. no masses, no bruits, trachea midline, no venous distension - Respiratory Lung sounds essentially clear throughout, diminished to her left lower lobe. Left posterior lateral flail chest with paradoxical movement. Oxygen saturations are 93% on room air and 95% on 12 L high flow nasal cannula. She is achieving 500 mL on her incentive spirometry with encouragement. - Cardiovascular Regular rhythm and rate. S1 and S2 present, negative for S3, gallop or murmur. Remote telemetry showing normal sinus rhythm heart rate 85 BPM. No edema present. - Abdomen Abdomen is soft, nontender and nondistended. Active bowel sounds present all 4 abdominal quadrants. No guarding or rigidity. No organomegaly appreciated. - Integumentary Skin is warm and dry. No clubbing or cyanosis is present. no rash, no growths, no abnormal pigmentation - Neurologic normal coordination, normal sensation - Musculoskeletal Equal strength bilaterally. - Psychiatric oriented to time, oriented to person, oriented to place, speech is normal, memory intact Results - Laboratory Findings CBC and BMP: 08/16/21 18:57 08/16/21 18:57 PT/INR, D-dimer PT 10.0 sec (9.0-12.0) 08/16/21 18:57 INR 0.9 (<1.2) 08/16/21 18:57 Abnormal lab findings: Abnormal Labs 08/16/21 18:57 Sodium 136 L BUN 26 H Glucose 149 H - Diagnostic Findings Chest x-ray: image reviewed U/S of Legs: image reviewed Assessment and Plan Plan: 1 traumatic left-sided pneumothorax, small, no need for chest tube insertion 2 traumatic left-sided rib fractures, 4 ribs are broken including rib 01/20/2010 and 11 on the left 3 small left-sided pleural effusion, rule out hemothorax, rule out pulmonary contusion/atelectasis 4 acute on chronic hypoxic respiratory failure, typically on 4 L currently on 12 L of oxygen by nasal cannula secondary to above 5 COPD with chronic hypoxic respiratory failure 6 chronic biapical scar with heavy calcification the right apex probably related to previous radiation therapy to the chest at the time of her breast cancer lawrence rgery 7 history of Ansley's thyroiditis 8 history of breast cancer with previous lumpectomy and radiation therapy 9 chronic back pain 10 thoracic kyphoscoliosis 11 irritable bowel syndrome 12 hyperlipidemia 13 history of hypothyroidism 14 smoker Plan Provide the patient incentive spirometer Daily chest x-ray Watch for any development of pneumothorax or hemothorax on the left There is a component of mild flail chest wall activity on the left Titrate the FiO2 to maintain a saturation above 90% Thank you control with [place] and this will be added Resume all medications Stool softeners Smoking cessation counseling We'll continue to follow
[2021-08-17] MEDS ORDERED: ONDANSETRON 4 MG/2 ML VIAL IVP PRN (12:48)
--- NOTE | 2021-08-17 18:08 | P.GSHP ---
History of Present Illness H&P Date: 08/17/21 Chief Complaint: Mechanical fall, multiple left-sided rib fractures Patient is a 70-year-old lady who presents to [facility] emergency department the evening of 08/16/2021 after suffering a fall from bed the previous evening. She tells me she was trying to negotiate up passed over her sleeping and ended up getting tangled in the blankets and bowel over the side of the bed striking her left posterior chest wall on an open drawer on her nightstand. She denies antecedent dizziness or lightheadedness, no reported head trauma, no loss of consciousness. She eventually came to the emergency department at the insistence of her for left-sided chest pains in the degree of discomfort with cough. She is not maintained on any manner of oral anticoagulants. She does have a history of somewhat severe COPD and is maintained on 4 L nasal cannula supplemental mental oxygen at home. He admits that she does not follow with pulmonology the way that she knows she should. She is still dealing with a nicotine dependence. She is not maintained on any manner of oral anticoagulants, has no known history of heart attack or stroke. She does admit to history of a right lower extremity DVT some 40 years ago. Review of oral medication shows no outpatient steroids. She tells me that she does have some manner breathing treatment at home that doesn't seem to be documented in our records. Her only complaints are that of left-sided chest pain exacerbated with coughing and movement. Computed tomography scan of the chest in the emergency department showed multiple fractures of ribs 8 through 11 and reported flail segments. There was mention of 10% left-sided pneumothorax. Review of the images shows some small bullous changes at the apices and what I would consider to be a trace much less than 5% apical pneumothorax. There is some soft tissue emphysema associated with a comminuted rib fractures but the lung appears expanded. I don't appreciate any thoracic spine injury. Follow-up chest x-ray this morning shows some congestive changes a persistent right upper lobe consolidation but no obvious pneumothorax. Laboratory studies were essent ially normal and all counts with respect to CBC and CMP, INR normal range is 0.9. Glucose was a bit elevated at 149. Albumin was 3.90 the patient is of quite frail body habitus. Patient has been admitted to the ICU under the trauma service with deputy clerk of superior court and pulmonology consultation and thoracic surgery consultation is pending. - Review of Systems All systems: negative - Constitutional Constitutional: Reports as per HPI Past Medical History Past Medical History: Coronary Artery Disease (CAD), Cancer, COPD, Hyperlipidemia, Thyroid Disorder Additional Past Medical History / Comment(s): Breast CA, hypothyroid, IBS, chronic hypoxic resp failure on 4 liters/min, Ansley thyroiditis, thoracic scoliosis History of Any Multi-Drug Resistant Organisms: None Reported Past Surgical History: Appendectomy, Cholecystectomy, Heart Catheterization, Hernia Repair, Hysterectomy, Orthopedic Surgery, Tonsillectomy Additional Past Surgical History / Comment(s): breast lumpectomy Past Anesthesia/Blood Transfusion Reactions: No Reported Reaction Past Psychological History: No Psychological Hx Reported Smoking Status: Current every day smoker Past Alcohol Use History: None Reported Past Drug Use History: None Reported - Past Family History Mother Family Medical History: Cancer (Breast cancer) Father Family Medical History: Cancer (Lung cancer) Medications and Allergies Home Medications Medication Instructions Recorded Confirmed Type Atorvastatin [Lipitor] 40 mg PO DAILY 08/16/21 08/16/21 History HYDROcodone/APAP 7.5-325MG [[place] 1 tab PO Q12H PRN 08/16/21 08/16/21 History 7.5-325] Isosorbide Mononitrate ER [Imdur] 30 mg PO DAILY 08/16/21 08/16/21 History Levothyroxine Sodium [Synthroid] 50 mcg PO DAILY 08/16/21 08/16/21 History Loperamide [Imodium] 2 mg PO BID PRN 08/16/21 08/16/21 History Metoprolol Succinate (ER) [Toprol 25 mg PO DAILY 08/16/21 08/16/21 History Xl] Omeprazole 40 mg PO DAILY 08/16/21 08/16/21 History Pregabalin [Lyrica] 100 mg PO BID 08/16/21 08/16/21 History busPIRone HCl [Buspar] 5 mg PO BID PRN 08/16/21 08/16/21 History Allergies Allergy/AdvReac Type Severity Reaction Status Date / Time Sulfa (Sulfonamide Allergy Rash/Hives Verified 08/16/21 19:19 Antibiotics) Surgical - Exam Osteopathic Statement: *. No significant issues noted on an osteopathic structural exam other than those noted in the History and Physical/Consult. Vital Signs Temp Pulse Resp BP Pulse Ox 98.9 F 86 22 150/61 91 L 08/16/21 18:25 08/16/21 18:25 08/16/21 18:25 08/16/21 18:25 08/16/21 18:25 - General cachectic - Eyes PERRL, normal ocular movement - ENT normal pinna, normal nares, normal mucosa - Neck trachea midline - Respiratory Poor inspiratory effort, lung sounds coarse bilaterally. There is moderate to severe tenderness over the left posterior lateral chest wall. With deep inspiration there is an obvious unstable flail segment with paradoxical motion. - Cardiovascular Rhythm: regular - Abdomen Abdomen is soft, nontender palpation, no guarding rebound or distention. Pelvis is stable. No abdominal or flank ecchymoses or contusions. Abdomen: soft, non tender - Neurologic normal coordination, normal sensation - Musculoskeletal Muscle compartments are soft, no lacerations abrasions or contusions. Painless range of motion at the hips. No midline or paraspinal tenderness to palpation. - Psychiatric oriented to time, oriented to person, oriented to place, memory intact Results - Labs 08/16/21 18:57 08/16/21 18:57 Abnormal Lab Results - Last 24 Hours (Table) 08/16/21 Range/Units 18:57 Sodium 136 L (137-145) mmol/L BUN 26 H (7-17) mg/dL Glucose 149 H (74-99) mg/dL Diabetes panel 08/16/21 Range/Units 18:57 Sodium 136 L (137-145) mmol/L Potassium 4.5 (3.5-5.1) mmol/L Chloride 103 (98-107) mmol/L Carbon Dioxide 24 (22-30) mmol/L BUN 26 H (7-17) mg/dL Creatinine 0.99 (0.52-1.04) mg/dL Glucose 149 H (74-99) mg/dL Calcium 9.2 (8.4-10.2) mg/dL AST 26 (14-36) U/L ALT 14 (4-34) U/L Alkaline Phosphatase 61 (38-126) U/L Total Protein 6.9 (6.3-8.2) g/dL Albumin 3.9 (3.5-5.0) g/dL Calcium panel 08/16/21 Range/Units 18:57 Calcium 9.2 (8.4-10.2) mg/dL Albumin 3.9 (3.5-5.0) g/dL Pituitary panel 08/16/21 Range/Units 18:57 Sodium 136 L (137-145) mmol/L Potassium 4.5 (3.5-5.1) mmol/L Chloride 103 (98-107) mmol/L Carbon Dioxide 24 (22-30) mmol/L BUN 26 H (7-17) mg/dL Creatinine 0.99 (0.52-1.04) mg/dL Glucose 149 H (74-99) mg/dL Calcium 9.2 (8.4-10.2) mg/dL Adrenal panel 08/16/21 Range/Units 18:57 Sodium 136 L (137-145) mmol/L Potassium 4.5 (3.5-5.1) mmol/L Chloride 103 (98-107) mmol/L Carbon Dioxide 24 (22-30) mmol/L BUN 26 H (7-17) mg/dL Creatinine 0.99 (0.52-1.04) mg/dL Glucose 149 H (74-99) mg/dL Calcium 9.2 (8.4-10.2) mg/dL Total Bilirubin 0.7 (0.2-1.3) mg/dL AST 26 (14-36) U/L ALT 14 (4-34) U/L Alkaline Phosphatase 61 (38-126) U/L Total Protein 6.9 (6.3-8.2) g/dL Albumin 3.9 (3.5-5.0) g/dL - Imaging Chest x-ray: report reviewed, image reviewed CT scan - chest: report reviewed, image reviewed Assessment and Plan Assessment: 70-year-old lady status post mechanical fall, delayed presentation. Associated comminuted and displaced left sided rib fractures 8 through 9 with obvious flail segment on deep inspiration. Likely underlying degree of pulmonary contusion. Progressive changes of congestion on follow-up x-ray but no evidence of interval worsening of trace left apical pneumothorax overnight. Today history of COPD and I suspect emphysema with home oxygen requirement of 4 L nasal cannula. No other evidence of traumatic injury seen. Patient has a painless range of active cervical motion no midline or paraspinal tenderness to palpation. No scalp lacerations or contusions, benign abdominal exam. No history of oral anticoagulation, no reported head trauma or loss of consciousness. The patient appears frail and physically deconditioned, medical history is significant for coronary artery disease, breast cancer, hyperlipidemia and Ansley's thyroiditis. Plan: Patient's been admitted the ICU given evidence of flail chest for close monitoring, pain control, oxygen supplementation. Appreciate deputy clerk of superior court and pulmonology consultation and interventions. We'll add topical Lidoderm patch and albuterol as needed. The patient's primary care is on staff locally and will be consulted. The patient and her were advised that her injury is significant and will take several weeks to recover from. Her primary concern is preventing pneumonia. She was encouraged to use her incentive spirometer diligently, we'll do our best with respect to pain control. Will await further recommendations from Dr. Johnson regarding potential other interventions. Time with Patient: Greater than 30
[2021-08-17] MEDS: LIDOCAINE 5% PATCH TOPICAL SCH (18:45)
[2021-08-17 20:22] LABS: Glucose,Whole Blood 105 mg/dL (75-99)
[2021-08-18] MEDS: HYDROmorphone 1 MG/ML 1 ML SYRINGE IVP PRN ×2 (01:34→06:09)
[2021-08-18] MEDS: PANTOPRAZOLE 40 MG TABLET PO SCH (06:40)
[2021-08-18] MEDS: LEVOTHYROXINE 50 MCG TAB PO SCH (06:40)
[2021-08-18 06:54] LABS: Basophils % (A) 0 %; Eosinophils % (A) 1 %; HCT 36.3 % (34.0-46.0); HGB 11.8 gm/dL (11.4-16.0); Lymphocytes % (A) 22 %; MCH 32.8 pg (25.0-35.0); MCHC 32.6 g/dL (31.0-37.0); MCV 100.4 fL (80.0-100.0); Macrocytosis Slight; Mean Platelet Volume 8.5; Monocytes # (A) 0.6 k/uL (0-1.0); Monocytes % (A) 7 %; Neutrophils # (A) 6.2 k/uL (1.3-7.7); Neutrophils % (A) 68 %; Platelet Count 207 k/uL (150-450); RBC 3.61 m/uL (3.80-5.40); RDW 14.4 % (11.5-15.5); WBC 9.2 k/uL (3.8-10.6)
--- NOTE | 2021-08-18 07:18 | XR ---
EXAMINATION TYPE: XR chest 1V DATE OF EXAM: 08/18/2021 COMPARISON: Chest x-ray 08/17/2021 HISTORY: Pneumothorax, flail test TECHNIQUE: Single frontal view of the chest is obtained. FINDINGS: There is improvement in the aeration at the left lung base. Left-sided rib fractures are a gain noted. Biapical pleural thickening is noted. No sizable pneumothorax. Postop change noted to the cervical spine. There is underlying emphysema. No sizable effusion. Cardiomediastinal silhouette is stable. IMPRESSION: Interval improvement in aeration.
[2021-08-18 07:37] LABS: Calcium 8.8 mg/dL (8.4-10.2); Potassium 4.4 mmol/L (3.5-5.1)
[2021-08-18] MEDS: HYDROcodone/APAP 7.5-325MG 1 EACH TAB PO PRN ×3 (08:21→19:27)
[2021-08-18] MEDS: PREGABALIN 100 MG CAP PO SCH ×2 (08:21→19:28)
[2021-08-18] MEDS: ISOSORBIDE MONONITRATE ER 30 MG TAB.ER.24H PO SCH (08:21)
[2021-08-18] MEDS: ATORVASTATIN 40 MG TAB PO SCH (08:21)
[2021-08-18] MEDS: METOPROLOL SUCCINATE (ER) 25 MG TAB.ER.24H PO SCH (08:21)
--- NOTE | 2021-08-18 11:21 | P.PN ---
Subjective Progress Note Date: 08/18/21 Principal diagnosis: Mechanical fall, multiple left-sided rib fractures and flail chest Patient seen and examined at bedside. Has been transferred out of the ICU to the medical surgical floor. She continues to do quite well and despite of the severity of her injury. She is on her normal home supplemental oxygen dose at 4 L nasal cannula. She denies shortness of breath or significant pain at rest. She has been out of bed to chair but has not been ambulatory in the halls. Her pain is under better control today than yesterday. She is tolerating regular diet, voiding without issue. Chest x-ray from this morning shows hyperinflation and improved aeration compared to yesterday, persistent left-sided rib fractures and no evidence of pneumothorax or subcutaneous emphysema, no discrete pulmonary contusion or evidence of pneumonia. Laboratory studies show a normal range white blood cell count 9.2, hemoglobin stable 11.8, platelet count 207. Serum electrolyte analysis shows a mild hyponatremia at 132, potassium normal range of 4.4, creatinine 0.8, glucose of 89. Objective - Vital Signs Vital signs: Vital Signs Temp 98.3 F 08/18/21 08:00 Pulse 70 08/18/21 09:00 Resp 14 08/18/21 09:00 BP 135/54 08/18/21 09:00 Pulse Ox 95 08/18/21 09:00 Intake & Output 08/17/21 08/18/21 08/18/21 18:59 06:59 18:59 Intake Total 325 120 Output Total 700 300 Balance 325 -580 -300 Weight 44 kg Intake: Oral 325 120 Output: Urine 700 300 Other: # Voids 0 0 0 - Constitutional General appearance: Present: thin - EENT Eyes: Present: EOMI, PERRLA ENT: Present: hearing grossly normal - Neck Neck: Present: normal ROM - Respiratory Details: Lung sounds decreased bilaterally, no crackles wheezes or rhonchi. Persistent paradoxical motion of the left posterior lateral chest wall segment on deep inspiration without ecchymoses or laceration. Areas moderately tender, improved compared to yesterday. - Cardiovascular Rhythm: regular - Gastrointestinal Gastrointestinal Comment(s): Abdomen is soft, nontender to palpation, no guarding rebound or distention. No abdominal ecchymoses or contusions. - Neurologic Neurologic Comment(s): GCS 15, patient alert and oriented 3, no focal motor or sensory deficits. Neurologic: Present: CNII-XII intact - Psychiatric Psychiatric: Present: A&O x's 3, appropriate affect, intact judgment & insight - Labs CBC & Chem 7: 08/18/21 06:30 08/18/21 06:30 Labs: Abnormal Lab Results - Last 24 Hours (Table) 08/17/21 08/18/21 08/18/21 Range/Units 20:20 06:30 06:30 RBC 3.61 L (3.80-5.40) m/uL MCV 100.4 H (80.0-100.0) fL Sodium 132 L (137-145) mmol/L BUN 25 H (7-17) mg/dL POC Glucose (mg/dL) 105 H (75-99) mg/dL - Imaging and Cardiology Chest x-ray: report reviewed, image reviewed Assessment and Plan Assessment: 70-year-old lady status post mechanical fall, delayed presentation. Associated comminuted and displaced left sided rib fractures 8 through 11 with obvious flail segment on deep inspiration. Trace left apical pneumothorax seen only on CT has not progressed on serial follow-up x-ray. Improved aeration on today's films History of COPD, and I suspect emphysema with home oxygen requirement of 4 L nasal cannula. No other evidence of traumatic injury seen. Hemodynamically stable and afebrile overnight, doing quite well despite of severity of injury. Back on her normal home supplemental oxygen dose. The patient appears frail and physically deconditioned, medical history is significant for coronary artery disease, breast cancer, hyperlipidemia and Ansley's thyroiditis. Plan: Pulmonology and cardiovascular thoracic surgery notes reviewed and appreciated. No plans for surgical intervention for now. Continue with present pain control regimen, regular diet as tolerated. Physical therapy and occupational therapy consulted for ambulation, ADLs and potential rehab needs on discharge. Follow- up chest x-ray tomorrow. She may be ready for discharge as early as tomorrow pending PT OT assessment. Primary care services been consult it, if she needs to remain in the hospital beyond tomorrow a transition to a medical admission would be appropriate as she has no surgical needs. Time with Patient: Greater than 30
--- NOTE | 2021-08-18 11:40 | P.PN ---
Subjective Progress Note Date: 08/18/21 Principal diagnosis: Dyspnea, pneumothorax 70-year-old female patient, known history of COPD, known history of breast cancer with a previous lumpectomy and radiation therapy which is caused a right apical scar which is heavily calcified on CAT scan of the chest. The patient continues to smoke cigarettes. The patient has irritable bowel syndrome, hyperlipidemia, chronic back pain and scoliosis of the thoracic spine. The patient is on oxygen at 4 L per minute nasal cannula. The patient came into the ED yesterday after she had a fall. She was trying to get out of bed and she slept and she fell and hit her left side of the chest at the nightstand. She became short of breath and she end up coming in to the hospital for further evaluation. No head trauma and no loss of consciousness. CAT scan of the chest showed for broken on the left including the 11th 10th nights and eighth ribs and the patient had some limited flail chest activity and the left lateral chest a annie and the patient had a small left-sided pneumothorax. No chest tube was inserted. The patient was admitted to the intensive care unit where he was placed on 100% on a beta facemask and currently she is being weaned down to nasal cannula. Pain is under good control for now. She'll be started on [place] for pain control. She is using incentive spirometer. No other complaints otherwise for now. Repeat chest x-ray from today shows development of a small effusion left lung base along with some atelectasis. No sizable pneumothorax on today's evaluation. The patient is currently on 5 L about 2 by nasal cannula with a pulse ox ranging between 94-97%. On 08/18/2021 patient seen in follow-up in intensive care unit, she is resting comfortably in bed, does not appear to be in any acute distress, rare pulse ox is 95-97%, she is not on any IV fluids, afebrile, hemodynamically she stable. T his had no acute events, no worsening dyspnea. Today's chest x-ray showing improvement in the aeration of the left lung base, left-sided rib fractures are again noted, biapical pleural thickening, no sizable pneumothorax was noted. There is underlying emphysema, no sizable pleural effusion. His labs have been noted white blood cell count is 9.2, hemoglobin 11.8, sodium is 132, the rest of electrolytes and renal profile were unremarkable. He denies any significant pain. She is working on the incentive spirometer with encouragement and reminded her and she is able to achieve 500 on the today. Patient has underlying history of COPD and normally wears oxygen at 4 L. No worsening cough or dyspnea, she is receiving breathing treatments with DuoNeb on an as needed basis. Objective - Vital Signs Vital signs: Vital Signs Temp 98.3 F 08/18/21 08:00 Pulse 70 08/18/21 09:00 Resp 14 08/18/21 09:00 BP 135/54 08/18/21 09:00 Pulse Ox 95 08/18/21 09:00 Intake & Output 08/17/21 08/18/21 08/18/21 18:59 06:59 18:59 Intake Total 325 120 Output Total 700 300 Balance 325 -580 -300 Weight 44 kg Intake: Oral 325 120 Output: Urine 700 300 Other: # Voids 0 0 0 - Exam GENERAL EXAM: Alert, very pleasant, 70-year-old frail looking female resting comfortably in bed, on room air with a pulse ox of 95% comfortable in no apparent distress. HEAD: Normocephalic/atraumatic. EYES: Normal reaction of pupils, equal size. Conjunctiva pink, sclera white. NOSE: Clear with pink turbinates. THROAT: No erythema or exudates. NECK: No masses, no JVD, no thyroid enlargement, no adenopathy. CHEST: No chest wall deformity. Symmetrical expansion. LUNGS: Equal air entry with no crackles, wheeze, rhonchi or dullness. CVS: Regular rate and rhythm, normal S1 and S2, no gallops, no murmurs, no rubs ABDOMEN: Soft, nontender. No hepatosplenomegaly, normal bowel sounds, no guarding or rigidity. EXTREMITIES: No clubbing, no edema, no cyanosis, 2+ pulses and upper and lower extremities. MUSCULOSKELETAL: Muscle strength and tone normal. SPINE: No scoliosis or deformity SKIN: No rashes CENTRAL NERVOUS SYSTEM: Alert and oriented -3. No focal deficits, tone is normal in all 4 extremities. PSYCHIATRIC: Alert and oriented -3. Appropriate affect. Intact judgment and insight. - Labs CBC & Chem 7: 08/18/21 06:30 08/18/21 06:30 Labs: Abnormal Lab Results - Last 24 Hours (Table) 08/17/21 08/18/21 08/18/21 Range/Units 20:20 06:30 06:30 RBC 3.61 L (3.80-5.40) m/uL MCV 100.4 H (80.0-100.0) fL Sodium 132 L (137-145) mmol/L BUN 25 H (7-17) mg/dL POC Glucose (mg/dL) 105 H (75-99) mg/dL Assessment and Plan Plan: Assessment: #1. Traumatic left-sided pneumothorax, small, with no need for chest tube insertion #2. Traumatic left-sided rib fractures #3. Small left-sided pleural effusion, rule out hemothorax rule out pulmonary contusion/atelectasis #4. Acute on chronic hypoxic respiratory failure typically on 4 L of oxygen #5. COPD with chronic hypoxic respiratory failure #6. Chronic biapical scar with heavy calcification of the right apex probably related to previous history of radiation therapy to the chest at the time of her breast cancer surgery #7. History of Ansley's thyroiditis #8. History of breast cancer with previous lumpectomy and radiation therapy #9. Chronic back pain #10. Thoracic kyphoscoliosis #11. Irritable bowel syndrome #12. Hyperlipidemia #13. History of hypothyroidism #14. Smoker Plan: Continue encouraging deep breathing and coughing Today's chest x-ray has been reviewed showing no sizable pneumothorax Vital signs are stable No acute events overnight Pain is fairly well controlled Could be considered for transfer out of intensive care unit to medical surgical floor I have personally seen and examined the patient, performed the documentation and the assessment and plan as written. Number of minutes spent on the visit: [10] Time with Patient: Less than 30
--- NOTE | 2021-08-18 12:50 | P.PN ---
Subjective Progress Note Date: 08/18/21 Principal diagnosis: Fall from standing with acute left-sided rib fractures, flail chest and left- sided pneumothorax, pain. Previous medical history of current nicotine dependence, COPD, chronic hypoxic respiratory failure on 4 L oxygen at night, hypothyroid, hyperlipidemia, breast cancer status post lumpectomy and radiation treatments, irritable bowel syndrome, chronic back pain, GERD The patient was seen and examined this morning in the intensive care unit lying in bed in no acute distress. She states pain is controlled with current medication regimen, denies shortness of breath. She has been ambulatory [id number] to the bathroom without difficulty. Remains on 4 L nasal cannula. Attempting incentive spirometry use but only achieving 500-750 mL at that time. When sitting up and taking a deep breath she is noted to have paradoxical movement of the left posterior chest wall in the area of her rib fractures, she does not appear to be in any respiratory distress. Objective - Vital Signs Vital signs: Vital Signs Temp 98.8 F 08/18/21 04:00 Pulse 61 08/18/21 07:00 Resp 22 08/18/21 07:00 BP 101/54 08/18/21 07:00 Pulse Ox 96 08/18/21 06:00 Intake & Output 08/17/21 08/18/21 08/18/21 18:59 06:59 18:59 Intake Total 325 120 Output Total 700 300 Balance 325 -580 -300 Weight 44 kg Intake: Oral 325 120 Output: Urine 700 300 Other: # Voids 0 0 1 - Exam CONSTITUTIONAL: Appears comfortable, cooperative, no acute distress RESPIRATORY: Lungs sounds with expiratory wheezes present bilaterally. Respirations even, nonlabored. Currently on 4 L nasal cannula with oxygen saturation 97%, oxygen saturation 86-87% on room air. Able to achieve 500-750 mL on incentive spirometry. Strong cough. CARDIOVASCULAR: S1, S2 present. Regular rate and rhythm, sinus rhythm on telemetry. Palpable peripheral pulses bilaterally. No edema present. No calf pain or tenderness noted. GASTROINTESTINAL: Abdomen soft, nontender, nondistended. Active bowel sounds present 4 quadrants. Tolerating diet. GENITOURINARY: Continues to void clear, yellow urine INTEGUMENTARY: Skin is warm and dry with evidence of good perfusion. NEUROLOGIC: Cranial nerves II through XII intact MUSKULOSKELETAL: Able to move all extremities, strength equal bilaterally, gait normal PSYCHIATRIC: Alert and oriented to person place and time, appropriate affect, intact judgment and insight - Allied health notes Allied health notes reviewed: nursing - Labs CBC & Chem 7: 08/18/21 06:30 08/18/21 06:30 Labs: Abnormal Lab Results - Last 24 Hours (Table) 08/17/21 08/18/21 08/18/21 Range/Units 20:20 06:30 06:30 RBC 3.61 L (3.80-5.40) m/uL MCV 100.4 H (80.0-100.0) fL Sodium 132 L (137-145) mmol/L BUN 25 H (7-17) mg/dL POC Glucose (mg/dL) 105 H (75-99) mg/dL - Imaging and Cardiology Chest x-ray: report reviewed, image reviewed Assessment and Plan Assessment: 1. Fall from standing with acute left-sided rib fractures, flail chest and left-sided pneumothorax 2. Pain, secondary to above 3. Current nicotine dependence 4. COPD 5. Chronic hypoxic respiratory failure on 4 L oxygen at night 6. Hypothyroid 7. Hyperlipidemia 8. History of breast cancer status post lumpectomy and radiation treatments 9. Irritable bowel syndrome 10. Chronic back pain 11. GERD Plan: 1. No plans for surgical intervention at this point in time 2. Wean O2 as tolerated. Encourage incentive spirometry 10 times every hour while awake 3. Encourage complete smoking cessation 4. Increase activity, ambulate as tolerated 5. Pain control per primary care 6. May be transferred out of ICU from our standpoint when okay with other servi jameson 7. Will continue to see again on an as-needed basis. Please call us with any further questions
[2021-08-18 13:13] VITALS: BMI 17.2
[2021-08-19] MEDS: LIDOCAINE 5% PATCH TOPICAL SCH ×2 (01:07→20:15)
[2021-08-19] MEDS: HYDROcodone/APAP 7.5-325MG 1 EACH TAB PO PRN ×2 (01:07→20:15)
[2021-08-19] MEDS: HYDROmorphone 1 MG/ML 1 ML SYRINGE IVP PRN ×3 (05:07→16:08)
[2021-08-19] MEDS: LEVOTHYROXINE 50 MCG TAB PO SCH (05:07)
--- NOTE | 2021-08-19 09:12 | XR ---
EXAMINATION TYPE: XR chest 1V DATE OF EXAM: 08/19/2021 COMPARISON: 08/18/2021 HISTORY: 70-year-old female left rib fractures from a fall, pneumothorax TECHNIQUE: Single frontal view of the chest is obtained. FINDINGS: ACDF hardware. Dextroconvex scoliosis along the thoracal lumbar junction. Cholecystectomy clips. Heart borderline in size. Hyperinflation compatible with emphysema. Interstitial and patchy op acities throughout persists without significant change. Focal patchy right greater than left apical o pacities again noted. Patchy inferior lingular opacity similar to slightly increased. No appreciable pneumothorax. Multiple left-sided rib fractures along the mid to lower chest. IMPRESSION: 1. COPD with biapical pleural-parenchymal scarring. Lingular atelectasis/infiltrate similar to slight ly increased. 2. Left-sided rib fractures. No appreciable pneumothorax.
[2021-08-19] MEDS: ATORVASTATIN 40 MG TAB PO SCH ×2 (10:10→10:11)
[2021-08-19] MEDS: METOPROLOL SUCCINATE (ER) 25 MG TAB.ER.24H PO SCH (10:11)
[2021-08-19] MEDS: PANTOPRAZOLE 40 MG TABLET PO SCH (10:11)
[2021-08-19] MEDS: ISOSORBIDE MONONITRATE ER 30 MG TAB.ER.24H PO SCH (10:14)
[2021-08-19] MEDS: PREGABALIN 100 MG CAP PO SCH ×2 (10:18→20:15)
--- NOTE | 2021-08-19 11:06 | P.PN ---
Subjective Progress Note Date: 08/19/21 Principal diagnosis: Mechanical fall, multiple left-sided rib fractures 8-11 and flail chest Patient seen and examined at bedside. Patient is under adequate control, still some left-sided posterior lateral chest soreness worse with deep inspiration and cough. Working with incentive spirometry. Has been ambulatory in the halls with physical therapy. Recommendations made for assist with a walker at home. Tolerating regular diet. Denies fever or chills. Intermittent slightly productive cough. Remains on 4 L O2 supplementation nasal cannula. Morning chest x-ray today shows evidence of COPD, apical pleural scarring and the lingular atelectasis versus infiltrate and stable multiple left-sided rib fractures. No evidence of pneumothorax. Objective - Vital Signs Vital signs: Vital Signs Temp 98.1 F 08/19/21 05:00 Pulse 71 08/19/21 05:00 Resp 18 08/19/21 05:00 BP 143/70 08/19/21 05:00 Pulse Ox 99 08/19/21 05:00 Intake & Output 08/18/21 08/19/21 08/19/21 18:59 06:59 18:59 Intake Total 120 0 Output Total 300 Balance -180 0 Weight 44 kg Intake: Oral 120 0 Output: Urine 300 Other: # Voids 0 2 - Constitutional General appearance: Present: no acute distress, thin - EENT Eyes: Present: PERRLA ENT: Present: hearing grossly normal - Respiratory Details: Adequate inspiratory effort, lung sounds slightly coarse bilaterally. Decreased paradoxical motion of the left posterior lateral flail segment with deep inspiration and cough. No subcutaneous emphysema. - Cardiovascular Rhythm: regular - Gastrointestinal Gastrointestinal Comment(s): Abdomen is soft, nontender to palpation, no guarding rebound or distention. - Neurologic Neurologic: Present: CNII-XII intact - Psychiatric Psychiatric: Present: A&O x's 3 - Labs CBC & Chem 7: 08/18/21 06:30 08/18/21 06:30 - Imaging and Cardiology Chest x-ray: report reviewed, image reviewed Assessment and Plan Assessment: 70-year-old lady status post mechanical fall, delayed presentation. Associated comminuted and displaced left sided rib fractures 8 through 11 with obvious flail segment on deep inspiration. Trace left apical pneumothorax seen only on CT has not progressed on serial follow-up x-ray. History of COPD, and I suspect emphysema with home oxygen requirement of 4 L nasal cannula. No other evidence of traumatic injury seen. Hemodynamically stable and afebrile overnight, doing quite well despite of severity of injury. Back on her normal home supplemental oxygen dose. The patient appears frail and physically deconditioned, medical history is significant for coronary artery disease, breast cancer, hyperlipidemia and Gene melissa's thyroiditis. Plan: Pulmonology and cardiovascular thoracic surgery notes reviewed and appreciated. No plans for surgical intervention for now. Continue with present pain control regimen, regular diet as tolerated. Anticipate discharge home tomorrow with regular supplemental home O2, walker for ambulation. Follow-up chest x-ray tomorrow. Follow-up with primary care within 1 week of discharge. No indications for antibiotics presently. If she has a free-floating chest wall segment 6-[address] she should follow-up with chest surgery to assess for potential fixation. She understands the need for smoking cessation and she is given a be doing her best with that on discharge. She is not interested in a nicotine patch. Time with Patient: Greater than 30
--- NOTE | 2021-08-19 11:06 | P.PN ---
Subjective Progress Note Date: 08/19/21 70-year-old female patient, known history of COPD, known history of breast cancer with a previous lumpectomy and radiation therapy which is caused a right apical scar which is heavily calcified on CAT scan of the chest. The patient continues to smoke cigarettes. The patient has irritable bowel syndrome, hyperlipidemia, chronic back pain and scoliosis of the thoracic spine. The patient is on oxygen at 4 L per minute nasal cannula. The patient came into the ED yesterday after she had a fall. She was trying to get out of bed and she slept and she fell and hit her left side of the chest at the nightstand. She became short of breath and she end up coming in to the hospital for further evaluation. No head trauma and no loss of consciousness. CAT scan of the chest showed for broken on the left including the 11th 10th nights and eighth ribs and the patient had some limited flail chest activity and the left lateral chest area and the patient had a small left-sided pneumothorax. No chest tube was inserted. The patient was admitted to the intensive care unit where he was placed on 100% on a beta facemask and currently she is being weaned down to nasal cannula. Pain is under good control for now. She'll be started on [place] for pain control. She is using incentive spirometer. No other complaints otherwise for now. Repeat chest x-ray from today shows development of a small effusion left lung base along with some atelectasis. No sizable pneumothorax on today's evaluation. The patient is currently on 5 L about 2 by nasal cannula with a pulse ox ranging between 94-97%. On 08/18/2021 patient seen in follow-up in intensive care unit, she is resting comfortably in bed, does not appear to be in any acute distress, rare pulse ox is 95-97%, she is not on any IV fluids, afebrile, hemodynamically she stable. This had no acute events, no worsening dyspnea. Today's chest x-ray showing improvement in the aeration of the left lung base, left-sided rib fractures are again noted, biapical pleural thickening, no sizable pneumothorax was noted. There is underlying emphysema, no sizable pleural effusion. His labs have been noted white blood cell count is 9.2, hemoglobin 11.8, sodium is 132, the rest of electrolytes and renal profile were unremarkable. He denies any significant pain. She is working on the incentive spirometer with encouragement and reminded her and she is able to achieve 500 on the today. Patient has underlying history of COPD and normally wears oxygen at 4 L. No worsening cough or dyspnea, she is receiving breathing treatments with DuoNeb on an as needed basis. The patient is seen today 08/19/2021 in follow-up on the regular medical floor. She is currently sitting up in a chair at the bedside. Awake and alert in no acute distress. She denies any worsening shortness of breath cough or congestion. No hemoptysis. She is maintaining O2 saturations in the mid 90s on 4 L/m per nasal cannula. She's been afebrile. Hemodynamically stable. Today's chest x-ray shows COPD with biapical pleural principle scarring. Lingular atelectasis/infiltrate similar to previous. Left-sided rib fractures. No appreciable pneumothorax. His working with the incentive spirometer. No new labs today. She remains on DuoNeb inhalations. Lidoderm patch in place. Objective - Vital Signs Vital signs: Vital Signs Temp 98.1 F 08/19/21 05:00 Pulse 71 08/19/21 05:00 Resp 18 08/19/21 05:00 BP 143/70 08/19/21 05:00 Pulse Ox 99 08/19/21 05:00 Intake & Output 08/18/21 08/19/21 08/19/21 18:59 06:59 18:59 Intake Total 120 0 Output Total 300 Balance -180 0 Weight 44 kg Intake: Oral 120 0 Output: Urine 300 Other: # Voids 0 2 - Exam GENERAL EXAM: Alert, very pleasant, 70-year-old frail looking female, up in a chair at the bedside, on or liters nasal cannula with a pulse ox of 99% co mfortable in no apparent distress. HEAD: Normocephalic/atraumatic. EYES: Normal reaction of pupils, equal size. Conjunctiva pink, sclera white. NOSE: Clear with pink turbinates. THROAT: No erythema or exudates. NECK: No masses, no JVD, no thyroid enlargement, no adenopathy. CHEST: No chest wall deformity. Symmetrical expansion. LUNGS: Equal air entry with no crackles, wheeze, rhonchi or dullness. Diminished. CVS: Regular rate and rhythm, normal S1 and S2, no gallops, no murmurs, no rubs ABDOMEN: Soft, nontender. No hepatosplenomegaly, normal bowel sounds, no guarding or rigidity. EXTREMITIES: No clubbing, no edema, no cyanosis, 2+ pulses and upper and lower extremities. MUSCULOSKELETAL: Muscle strength and tone normal. SPINE: No scoliosis or deformity SKIN: No rashes CENTRAL NERVOUS SYSTEM: No focal deficits, tone is normal in all 4 extremities. PSYCHIATRIC: Alert and oriented -3. Appropriate affect. Intact judgment and insight. - Labs CBC & Chem 7: 08/18/21 06:30 08/18/21 06:30 Assessment and Plan Assessment: 1 Traumatic left-sided pneumothorax, small, with no need for chest tube insertion 2 Traumatic left-sided rib fractures 3 Small left-sided pleural effusion, rule out hemothorax rule out pulmonary contusion/atelectasis 4 Acute on chronic hypoxic respiratory failure typically on 4 L of oxygen 5 COPD with chronic hypoxic respiratory failure 6 Chronic biapical scar with heavy calcification of the right apex probably related to previous history of radiation therapy to the chest at the time of her breast cancer surgery 7 History of Ansley's thyroiditis 8 History of breast cancer with previous lumpectomy and radiation therapy 9 Chronic back pain 10 Thoracic kyphoscoliosis 11 Irritable bowel syndrome 12 Hyperlipidemia 13 History of hypothyroidism 14 Smoker Plan: The patient was seen and evaluated Chest x-ray reviewed. No pneumothorax Continue to work with the incentive spirometer Continue bronchodilators Home once cleared by medicine Follow-up in the office in 1-2 weeks' I have personally seen and examined the patient, performed the documentation and the assessment and plan as written. Number of minutes spent on the visit: 10.
--- NOTE | 2021-08-19 13:54 | CONS ---
CONSULTATION She is admitted for flail chest after falling. She has COPD and she apparently broke four ribs. She is feeling better at this time. She is able to sit up in bed and she is breathing fairly stable at this time. She broke apparently 8, 9, 10, 11 ribs on the right side, although she is able to sit up in bed with minimal pain. She has a small pneumothorax. She is much better. She expects to go home tomorrow. PAST MEDICAL HISTORY: See old chart. PAST SURGICAL HISTORY: Surgical history reviewed. See old chart. MEDICATIONS: See old chart. Reviewed. PHYSICAL EXAMINATION: Temp 98.9, blood pressure 130s over 50s to 60s. Respiratory 18 to 16, pulse 70s to 80s, O2 low 90s on room air. CARDIOVASCULAR: S1, S2. LUNGS clear. MUSCULOSKELETAL: She has mild tenderness over the right ribs laterally. HEMATOLOGY: Negative Homans. PSYCH: Fair mood and affect. She is back to normal. ASSESSMENT: 1. Acute rib fractures. Minimal. 2. Flail chest. 3. Pneumothorax. She is all better. She is up and able to sit. She is breathing like her normal baseline. 4. Hypothyroidism. 5. Chronic obstructive pulmonary disease. 6. Dyslipidemia. 7. Nicotine addiction. 8. History of breast cancer. 9. Irritable bowel syndrome. 10.Borderline diabetes. 11.Gastroesophageal reflux disease. Home medicines are being ordered. She has got good pain control. She will be able to go home and walk with her walker, especially at nighttime when she gets out of bed. Fall precautions were discussed with her. Continue home medicine. She is stable at this point. MMODL / IJN: [id number] /
[2021-08-19] MEDS ORDERED: HYDROmorphone 0.5 MG/0.5 ML SYRINGE IVP PRN (16:13)
[2021-08-20] MEDS: LEVOTHYROXINE 50 MCG TAB PO SCH (03:18)
[2021-08-20] MEDS: HYDROcodone/APAP 7.5-325MG 1 EACH TAB PO PRN ×2 (03:18→09:24)
--- NOTE | 2021-08-20 07:16 | XR ---
EXAMINATION TYPE: XR chest 1V DATE OF EXAM: 08/20/2021 HISTORY: Shortness of breath. COMPARISON: 08/19/2021 TECHNIQUE: Single view of the chest is submitted. FINDINGS: Demonstrated are scattered senescent parenchymal change. Lingular infiltrate persists although is less conspicuous than on prior study. Right apical pleural t hickening and parenchymal scarring persists. The heart is stable. Hilar and mediastinal structures are within normal limits. Degenerative changes are seen of the dorsal spine. IMPRESSION: 1. Lingular infiltrate persists although is less conspicuous than on prior study. Right apical pleur al thickening and parenchymal scarring persists.
[2021-08-20 08:47] LABS: Basophils # (A) 0.04 X 10*3/uL (0.00-0.10); Basophils % (A) 0.6 %; Eosinophils # (A) 0.01 X 10*3/uL (0.04-0.35); Eosinophils % (A) 0.2 %; HCT 35.4 % (37.2-46.3); HGB 11.3 g/dL (12.0-15.0); Immature Grans, Automated 0.5 %; Lymphocytes # (A) 1.63 X 10*3/uL (0.90-5.00); Lymphocytes % (A) 24.9 %; MCH 30.9 pg (27.0-32.0); MCHC 31.9 g/dL (32.0-37.0); MCV 96.7 fL (80.0-97.0); Mean Platelet Volume 10.6 fL (9.5-12.2); Monocytes % (A) 13.8 %; NRBC Per 100 WBC 0 /100 WBCS (0.0-0.0); Neutrophils # (A) 3.93 X 10*3/uL (1.80-7.70); Platelet Count 212 X 10*3/uL (140-440); RBC 3.66 X 10*6/uL (4.10-5.20); RDW 13.9 % (11.5-14.5); WBC 6.54 X 10*3/uL (4.50-10.00)
[2021-08-20 09:01] LABS: African American GFR (CKD) 87.2 (60.0-200.0); Albumin 3.5 g/dL (3.8-4.9); Albumin/Globulin Ratio 1.46 (1.60-3.17); Anion Gap 7.6 mmol/L (10.00-18.00); BUN/Creat Ratio 19.25 Ratio (12.00-20.00); Blood Urea Nitrogen 15.4 mg/dL (9.0-27.0); Calcium 9.3 mg/dL (8.7-10.3); Carbon Dioxide 28.4 mmol/L (20.0-27.5); Globulin 2.4 g/dL (1.6-3.3); Non-African American GFR(CKD) 75.2 (60.0-200.0); Potassium 4.2 mmol/L (3.5-5.5); Total Bilirubin 0.4 mg/dL (0.30-1.20); Total Protein 5.9 g/dL (6.2-8.2)
[2021-08-20] MEDS: PANTOPRAZOLE 40 MG TABLET PO SCH (09:10)
[2021-08-20] MEDS: ISOSORBIDE MONONITRATE ER 30 MG TAB.ER.24H PO SCH (09:10)
[2021-08-20] MEDS: PREGABALIN 100 MG CAP PO SCH (09:10)
[2021-08-20] MEDS: METOPROLOL SUCCINATE (ER) 25 MG TAB.ER.24H PO SCH (09:10)
--- NOTE | 2021-08-20 11:02 | P.DS ---
Providers Date of admission: 08/16/21 20:14 Expected date of discharge: 08/20/21 Attending physician: Oscar Banks, Consults: 08/16/21 20:14 Consult Physician Routine Consulting Provider: Alyson Johnson Consult Reason/Comments: flail chest Do you want consulting provider notified?: Yes Consult Physician Urgent Consulting Provider: Germania Rosario Consult Reason/Comments: flail chest Do you want consulting provider notified?: Already Contacted 08/17/21 18:14 Consult Physician Routine Consulting Provider: Prakash Gonzalez Consult Reason/Comments: Rib Fx, patient's PCP Do you want consulting provider notified?: Yes, Notify in am Primary care physician: Prakash Gonzalez - Discharge Diagnosis(es) (1) Flail chest Current Visit: Yes Status: Acute Priority: High (2) Pneumothorax Current Visit: Yes Status: Acute Priority: High Hospital Course: Patient is a 70-year-old lady who presents to [facility] emergency department the evening of 08/16/2021 after suffering a fall from bed the previous evening. She tells me she was trying to negotiate up passed over her sleeping and ended up getting tangled in the blankets and bowel over the side of the bed striking her left posterior chest wall on an open drawer on her nightstand. She denies antecedent dizziness or lightheadedness, no reported head trauma, no loss of consciousness. She eventually came to the emergency department at the insistence of her for left-sided chest pains in the degree of discomfort with cough. She is not maintained on any manner of oral anticoagulants. She does have a history of somewhat severe COPD and is maintained on 4 L nasal cannula supplemental mental oxygen at home. He admits that she does not follow with pulmonology the way that she knows she should. She is still dealing with a nicotine dependence. She is not maintained on any manner of oral anticoagulants, has no known history of heart attack or stroke. She does admit to history of a right lower extremity DVT some 40 years ago. Review of oral medication shows no outpatient steroids. She tells me that she does have some manner breathing treatment at home that doesn't seem to be documented in our records. Her only complaints are that of left-sided chest pain exacerbated with coughing and movement. Computed tomography scan of the chest in the emergency department showed multiple fractures of ribs 8 through 11 and reported flail segments. There was mention of 10% left-sided pneumothorax. Review of the images shows some bullous changes at the apices and what I would consider to be a trace, much less than 5%, apical pneumothorax. There is some soft tissue emphysema associated with a comminuted rib fractures but the lung appears expanded. I don't appreciate any thoracic spine injury. Follow-up chest x-ray morning after admission shows some congestive changes a persistent right upper lobe consolidation but no obvious pneumothorax. Laboratory studies were essentially normal and all counts with respect to CBC and CMP, INR normal range is 0.9. Glucose was a bit elevated at 149. Albumin was 3.90 the patient is of quite frail body habitus. Patient was admitted to the ICU under the trauma service with scraper burrer and pulmonology consultation and thoracic surgery consultation is pending. Despite the severity of her injury she did quite well over her hospital course. Pain was adequately controlled with oral, parenteral, and topical adjuncts. Her trace left apical pneumothorax did not grow any worse on serial x-rays over the course of her stay. There were no discrete findings for pneumonia. She was compliant with recommendations to work with physical therapy for ambulation. In addition of pulmonology the cardiovascular thoracic surgery service was consult to it and it was felt that fixation was not indicated presently. Within about 24 hours of admission she was back down to her routine supplemental oxygen dose that she requires at home at 4 L nasal cannula. Patient remained hemodynamically stable and afebrile over the course of her stay, she tolerated regular diet without issue. Patient was discharged home in stable condition after confirming availability of home oxygen and a walker for ambulation which was recommended by the PT/OT service. She was discharged with a one-week course of pain medications, prescription for Lidoderm patch, instructions to continue with aggressive incentive spirometry and deep breathing, and asked to follow up with her primary care within 1 week of discharge. Routine home medications were resumed. If she has problems with chest wall stability more than a month out from injury she should touch base with thoracic surgery on an outpatient basis. Patient Condition at Discharge: Good Plan - Discharge Summary New Discharge Prescriptions: New HYDROcodone/APAP 7.5-325MG [[place] 7.5-325] 1 tab PO Q6HR PRN 7 Days #24 tab PRN Reason: Pain Lidocaine 5% Patch [Lidoderm] 1 patch TOPICAL DAILY #7 patch No Action Omeprazole 40 mg PO DAILY Isosorbide Mononitrate ER [Imdur] 30 mg PO DAILY busPIRone HCl [Buspar] 5 mg PO BID PRN PRN Reason: Anxiety HYDROcodone/APAP 7.5-325MG [[place] 7.5-325] 1 tab PO Q12H PRN PRN Reason: Pain Pregabalin [Lyrica] 100 mg PO BID Metoprolol Succinate (ER) [Toprol Xl] 25 mg PO DAILY Loperamide [Imodium] 2 mg PO BID PRN PRN Reason: Diarrhea Levothyroxine Sodium [Synthroid] 50 mcg PO DAILY Atorvastatin [Lipitor] 40 mg PO DAILY Discharge Medication List Atorvastatin [Lipitor] 40 mg PO DAILY 08/16/21 [History] HYDROcodone/APAP 7.5-325MG [[place] 7.5-325] 1 tab PO Q12H PRN 08/16/21 [History] Isosorbide Mononitrate ER [Imdur] 30 mg PO DAILY 08/16/21 [History] Levothyroxine Sodium [Synthroid] 50 mcg PO DAILY 08/16/21 [History] Loperamide [Imodium] 2 mg PO BID PRN 08/16/21 [History] Metoprolol Succinate (ER) [Toprol Xl] 25 mg PO DAILY 08/16/21 [History] Omeprazole 40 mg PO DAILY 08/16/21 [History] Pregabalin [Lyrica] 100 mg PO BID 08/16/21 [History] busPIRone HCl [Buspar] 5 mg PO BID PRN 08/16/21 [History] HYDROcodone/APAP 7.5-325MG [[place] 7.5-325] 1 tab PO Q6HR PRN 7 Days #24 tab 08/20/21 [Rx] Lidocaine 5% Patch [Lidoderm] 1 patch TOPICAL DAILY #7 patch 08/20/21 [Rx] Follow up Appointment(s)/Referral(s): Prakash Gonzalez MD [Primary Care Provider] - 1-2 days Patient Instructions/Handouts: Omeprazole (By mouth)
--- NOTE | 2021-08-20 11:46 | P.PN ---
Subjective Progress Note Date: 08/20/21 70-year-old female patient, known history of COPD, known history of breast cancer with a previous lumpectomy and radiation therapy which is caused a right apical scar which is heavily calcified on CAT scan of the chest. The patient continues to smoke cigarettes. The patient has irritable bowel syndrome, hyperlipidemia, chronic back pain and scoliosis of the thoracic spine. The patient is on oxygen at 4 L per minute nasal cannula. The patient came into the ED yesterday after she had a fall. She was trying to get out of bed and she slept and she fell and hit her left side of the chest at the nightstand. She became short of breath and she end up coming in to the hospital for further evaluation. No head trauma and no loss of consciousness. CAT scan of the chest showed for broken on the left including the 11th 10th nights and eighth ribs and the patient had some limited flail chest activity and the left lateral chest area and the patient had a small left-sided pneumothorax. No chest tube was inserted. The patient was admitted to the intensive care unit where he was placed on 100% on a beta facemask and currently she is being weaned down to nasal cannula. Pain is under good control for now. She'll be started on Rudd for pain control. She is using incentive spirometer. No other complaints otherwise for now. Repeat chest x-ray from today shows development of a small effusion left lung base along with some atelectasis. No sizable pneumothorax on today's evaluation. The patient is currently on 5 L about 2 by nasal cannula with a pulse ox ranging between 94-97%. On 08/18/2021 patient seen in follow-up in intensive care unit, she is resting comfortably in bed, does not appear to be in any acute distress, rare pulse ox is 95-97%, she is not on any IV fluids, afebrile, hemodynamically she stable. This had no acute events, no worsening dyspnea. Today's chest x-ray showing improvement in the aeration of the left lung base, left-sided rib fractures are again noted, biapical pleural thickening, no sizable pneumothorax was noted. There is underlying emphysema, no sizable pleural effusion. His labs have been noted white blood cell count is 9.2, hemoglobin 11.8, sodium is 132, the rest of electrolytes and renal profile were unremarkable. He denies any significant pain. She is working on the incentive spirometer with encouragement and reminded her and she is able to achieve 500 on the today. Patient has underlying history of COPD and normally wears oxygen at 4 L. No worsening cough or dyspnea, she is receiving breathing treatments with DuoNeb on an as needed basis. The patient is seen today 08/19/2021 in follow-up on the regular medical floor. She is currently sitting up in a chair at the bedside. Awake and alert in no acute distress. She denies any worsening shortness of breath cough or congestion. No hemoptysis. She is maintaining O2 saturations in the mid 90s on 4 L/m per nasal cannula. She's been afebrile. Hemodynamically stable. Today's chest x-ray shows COPD with biapical pleural principle scarring. Lingular atelectasis/infiltrate similar to previous. Left-sided rib fractures. No appreciable pneumothorax. His working with the incentive spirometer. No new labs today. She remains on DuoNeb inhalations. Lidoderm patch in place. The patient is seen today 08/20/2021 in follow-up on the regular medical floor. She is currently resting comfortably in bed. Awake and alert in no acute distress. She is maintaining O2 saturations in the mid 90s on 4 L/m per nasal cannula. White count 6.5. Hemoglobin 11.3. Sodium 135. Potassium 4.2. BUN 15. Creatinine 0.8. AST 12. ALT 11. Her pain is well managed. She denies a ny significant pain on inhalation. Follow-up chest x-ray revealed lingular infiltrate which is less common suspicious compared to previous. Right apical pleural thickening persists. She is continued on bronchodilators. Lidoderm patch in place. Objective - Vital Signs Vital signs: Vital Signs Temp 97.5 F L 08/20/21 04:35 Pulse 70 08/20/21 09:37 Resp 22 08/20/21 08:50 BP 150/78 08/20/21 09:37 Pulse Ox 95 08/20/21 04:35 Intake & Output 08/19/21 08/20/21 08/20/21 18:59 06:59 18:59 Intake Total 100 Balance 100 Intake: Oral 100 Other: # Voids 2 - Exam GENERAL EXAM: Alert, very pleasant, 70-year-old frail looking female, on 4 liters nasal cannula with a pulse ox of 95% comfortable in no apparent distress. HEAD: Normocephalic/atraumatic. EYES: Normal reaction of pupils, equal size. Conjunctiva pink, sclera white. NOSE: Clear with pink turbinates. THROAT: No erythema or exudates. NECK: No masses, no JVD, no thyroid enlargement, no adenopathy. CHEST: No chest wall deformity. Symmetrical expansion. LUNGS: Equal air entry with no crackles, wheeze, rhonchi or dullness. Diminished. CVS: Regular rate and rhythm, normal S1 and S2, no gallops, no murmurs, no rubs ABDOMEN: Soft, nontender. No hepatosplenomegaly, normal bowel sounds, no guarding or rigidity. EXTREMITIES: No clubbing, no edema, no cyanosis, 2+ pulses and upper and lower extremities. MUSCULOSKELETAL: Muscle strength and tone normal. SPINE: No scoliosis or deformity SKIN: No rashes CENTRAL NERVOUS SYSTEM: No focal deficits, tone is normal in all 4 extremities. PSYCHIATRIC: Alert and oriented -3. Appropriate affect. Intact judgment and insight. - Labs CBC & Chem 7: 08/20/21 05:38 08/20/21 05:38 Labs: Abnormal Lab Results - Last 24 Hours (Table) 08/20/21 08/20/21 Range/Units 05:38 05:38 RBC 3.66 L (4.10-5.20) X 10*6/uL Hgb 11.3 L (12.0-15.0) g/dL Hct 35.4 L (37.2-46.3) % MCHC 31.9 L (32.0-37.0) g/dL Eosinophils # 0.01 L (0.04-0.35) X 10*3/uL Carbon Dioxide 28.4 H (20.0-27.5) mmol/L Anion Gap 7.60 L (10.00-18.00) mmol/L AST 12 L (13-35) U/L Total Protein 5.9 L (6.2-8.2) g/dL Albumin 3.5 L (3.8-4.9) g/dL Albumin/Globulin Ratio 1.46 L (1.60-3.17) g/dL Assessment and Plan Assessment: 1 Traumatic left-sided pneumothorax, small, with no need for chest tube in sertion 2 Traumatic left-sided rib fractures 3 Small left-sided pleural effusion, rule out hemothorax rule out pulmonary contusion/atelectasis 4 Acute on chronic hypoxic respiratory failure typically on 4 L of oxygen 5 COPD with chronic hypoxic respiratory failure 6 Chronic biapical scar with heavy calcification of the right apex probably related to previous history of radiation therapy to the chest at the time of her breast cancer surgery 7 History of Ansley's thyroiditis 8 History of breast cancer with previous lumpectomy and radiation therapy 9 Chronic back pain 10 Thoracic kyphoscoliosis 11 Irritable bowel syndrome 12 Hyperlipidemia 13 History of hypothyroidism 14 Smoker Plan: The patient was seen and evaluated Chest x-ray and labs reviewed Plan is for home today Continue to work with the incentive spirometer Continue bronchodilators Follow-up in the office in 1-2 weeks' I have personally seen and examined the patient, performed the documentation and the assessment and plan as written. Number of minutes spent on the visit: 10.
[2021-08-20 14:03] VITALS: BP 124/72; PULSE 52; RESP 14; TEMP 97.9
--- NOTE | 2021-08-20 15:44 | PN ---
PROGRESS NOTE 70-year-old white female. Ribs are hurting a little bit less today. She continues on home medicines. Pain is controlled with oral pain pills. Blood pressure 120s over 70s, O2 saturation 97, pulse 50s to 70s, temp afebrile. Cardiovascular S1, S2. Lungs clear. GI soft. Hematology: Negative Homans. Hemoglobin is 11.3, albumin is low, about 3.5. ASSESSMENT: 1. Rib fractures. 2. Frequent falls. 3. Hypoxemia. 4. End stage chronic obstructive pulmonary disease. 5. Degenerative disk disease. Continue wear oxygen at night time, walk with a walker at home. Fall precautions. Continue rib pain control. Follow up in office. MMODL / IJN: [id number] /
== END 2021-08-20 14:25 | disposition home or self-care (01) | DRG 183 ==
LOC: EC 18:10 → 2SICU 20:14 → 5NMEDONC 08-18 10:21
PROVIDERS: ADMIT Surgery; ATTEND Surgery
PROC: 3E0F7SF Introduction of Other Gas into Respiratory Tract, Via Natural or Artificial Opening (ICD-10-PCS; principal; 2021-08-16)
DX: S22.5XXA Flail chest, initial encounter for closed fracture (principal); J96.21 Acute and chronic respiratory failure with hypoxia; S27.0XXA Traumatic pneumothorax, initial encounter; T79.7XXA Traumatic subcutaneous emphysema, initial encounter; S27.329A Contusion of lung, unspecified, initial encounter; J90 Pleural effusion, not elsewhere classified; E87.1 Hypo-osmolality and hyponatremia; J98.11 Atelectasis; I25.10 Atherosclerotic heart disease of native coronary artery without angina pectoris; E06.3 Autoimmune thyroiditis; E78.5 Hyperlipidemia, unspecified; F17.210 Nicotine dependence, cigarettes, uncomplicated; K21.9 Gastro-esophageal reflux disease without esophagitis; J44.9 Chronic obstructive pulmonary disease, unspecified; K58.9 Irritable bowel syndrome, unspecified; M41.84 Other forms of scoliosis, thoracic region; R29.6 Repeated falls; R73.03 Prediabetes; G89.29 Other chronic pain; W01.198A Fall on same level from slipping, tripping and stumbling with subsequent striking against other object, initial encounter; W06.XXXA Fall from bed, initial encounter; Z79.890 Hormone replacement therapy; Z79.899 Other long term (current) drug therapy; Z80.1 Family history of malignant neoplasm of trachea, bronchus and lung; Z80.3 Family history of malignant neoplasm of breast; Z85.3 Personal history of malignant neoplasm of breast; Z86.718 Personal history of other venous thrombosis and embolism; Z90.710 Acquired absence of both cervix and uterus; Z92.3 Personal history of irradiation; Z99.81 Dependence on supplemental oxygen; Z88.2 Allergy status to sulfonamides; Z90.49 Acquired absence of other specified parts of digestive tract; Z87.19 Personal history of other diseases of the digestive system
CPT/HCPCS: 36415; 71045; 71250; 80048; 80053; 85025; 85610; 85730; 96374; 99291

== ENCOUNTER 2021-12-17 17:43 | Inpatient (IN) | payer MEDICARE ==
[2021-12-17 17:48] LABS: Glucose,Whole Blood 62 mg/dL (70-110)
[2021-12-17] MEDS ORDERED: DEXTROSE 50% SYRINGE 50 ML IVP STA (17:53)
[2021-12-17] MEDS ORDERED: DEXTROSE 5%-0.45% NACL 1,000 ML IV ONE (17:53)
--- NOTE | 2021-12-17 17:56 | ED ---
General Adult HPI - General Stated complaint: AMS Time Seen by Provider: 12/17/21 17:45 Source: patient, EMS, RN notes reviewed Mode of arrival: EMS Limitations: altered mental status - History of Present Illness Initial comments: Patient is a 71-year-old female presenting to the emergency department by EMS with concerns for altered mental status. Patient has reportedly had fevers for the past few days. Patient is a poor historian and history comes by EMS. EMS did find low blood sugar and did give 1 amp of D50. Blood sugars again low here in the emergency department. Patient not following most commands. Patient nonverbal. Patient reportedly has been laying on the couch for the past 4 days with fevers at home. - Related Data Home Medications Medication Instructions Recorded Confirmed Atorvastatin [Lipitor] 40 mg PO HS 08/16/21 12/17/21 Isosorbide Mononitrate ER [Imdur] 30 mg PO DAILY 08/16/21 12/17/21 Levothyroxine Sodium [Synthroid] 50 mcg PO DAILY 08/16/21 12/17/21 Metoprolol Succinate (ER) [Toprol 25 mg PO DAILY 08/16/21 12/17/21 Xl] Omeprazole 40 mg PO DAILY 08/16/21 12/17/21 HYDROcodone/APAP 7.5-325MG [[place] 1 tab PO TID 12/17/21 12/17/21 7.5-325] Pregabalin [Lyrica] 75 mg PO BID 12/17/21 12/17/21 Allergies Allergy/AdvReac Type Severity Reaction Status Date / Time Sulfa (Sulfonamide Allergy Rash/Hives Verified 12/17/21 18:27 Antibiotics) Review of Systems ROS Statement: Those systems with pertinent positive or pertinent negative responses have been documented in the HPI. ROS Other: All systems not noted in ROS Statement are negative. Limitations: ROS unobtainable due to patients medical condition Constitutional: Reports: fever Past Medical History Past Medical History: Coronary Artery Disease (CAD), Cancer, COPD, Hyperlipidemia, Thyroid Disorder Additional Past Medical History / Comment(s): Breast CA, hypothyroid, IBS, chronic hypoxic resp failure on 4 liters/min, Ansley thyroiditis, thoracic scoliosis History of Any Multi-Drug Resistant Organisms: None Reported Past Surgical History: Appendectomy, Cholecystectomy, Heart Catheterization, Hernia Repair, Hysterectomy, Orthopedic Surgery, Tonsillectomy Additional Past Surgical History / Comment(s): breast lumpectomy Past Anesthesia/Blood Transfusion Reactions: No Reported Reaction Past Psychological History: No Psychological Hx Reported Smoking Status: Current every day smoker Past Alcohol Use History: None Reported Past Drug Use History: None Reported - Past Family History Mother Family Medical History: Cancer (Breast cancer) Father Family Medical History: Cancer (Lung cancer) General Exam Limitations: altered mental status General appearance: alert Head exam: Present: atraumatic Eye exam: Present: normal appearance, PERRL ENT exam: Present: mucous membranes dry Neck exam: Present: normal inspection. Absent: tenderness, meningismus Respiratory exam: Present: rales (Right base) Cardiovascular Exam: Present: tachycardia GI/Abdominal exam: Present: soft. Absent: distended, tenderness Extremities exam: Present: normal inspection Neurological exam: Present: alert, altered, other (Only follow simple commands such as opening mouth. Limited exam. No flaccid weakness. Patient does move all extremities.) Psychiatric exam: Present: flat affect Skin exam: Present: mottled (Right chest region) Course Vital Signs 12/17/21 12/17/21 12/17/21 17:48 18:20 18:25 Temperature 99.3 F Pulse Rate 113 H Respiratory 32 H Rate Blood Pressure 104/90 O2 Sat by Pulse Oximetry Fraction of 100 100 Inspired Oxygen (FIO2) 12/17/21 19:02 Temperature Pulse Rate 76 Respiratory 24 Rate Blood Pressure 147/84 O2 Sat by Pulse 93 L Oximetry Fraction of Inspired Oxygen (FIO2) - Reevaluation(s) Reevaluation #1: 12/17/21 18:31 Patient started to decompensate and went into respiratory arrest. Bag ventilation was provided. Patient was intubated. Blood pressure has been labile and central line was placed. 12/17/21 18:35 EKG with abnormality, cardiology paged KG #2 shows A. fib with rate of 67. QRS 121. QT 351. QTC 367. Normal axis. Septal Q waves with ST elevation V2 V3. Inferior ST elevation. 12/17/21 18:38 Case was discussed with Dr. Walters who would like patient to be treated medically secondary to her severe respiratory disease at this time. He recommends aspirin and statin, no heparin. 12/17/21 18:57 There is concern for septic shock diagnosed at 1857. Blood culture and lactic acid and IV antibiotics have all been ordered. Fluid bolus of 30 mL/kg has been ordered. Central line placed. Pressors started. 12/17/21 19:16 Care will be taken to flush line following Rocephin prior to calcium. This has been relayed to the nurse. 12/17/21 19:27 Patient again reevaluated. Patient does have blood pressure. Levophed on. Case also discussed with Dr. Vargas who recommends switching to cefepime with vancomycin 12/17/21 19:34 Case also discussed with Dr. Gonzalez, who will admit. EKG Findings - EKG Comments: EKG Findings:: A. fib with rate of 62. QRS 126. QT 357. QTC 363. Normal axis. Septal Q waves with some ST elevation. There is also inferior ST elevation. Procedures - ABG Interpretation Ph: 6.69 PCO2: 35 PO2: 129 Bicarbonate: 4.3 Interpretation: metabolic acidosis - Central Line Placement Right Femoral Consent Obtained: emergent situation Patient Placed on Monitor/Pulse Ox: Yes MD Prep: mask, gown, gloves Central Line Prep: Chlorhexidine scrub Ultrasound Used for Placement: No Central Line Lumen Inserted: triple Central Line Position: good blood return, all ports aspirated, flushed, capped, sutured in place with nylon Dressing Applied: Tegaderm Patient Tolerated Procedure: well, no complications - Intubation Laryngoscope: Bishop Size: 3 ET Tube Size: 7.5 Tube Placement Confirmation: visualized tube passing through cords, equal breath sounds bilaterally, no breath sounds over epigastrium, confirmation by capnometry Patient Tolerated Procedure: well, no complications - Sepsis Sepsis Focused Exam #1 Time Sepsis Criteria Met: 18:57 Sepsis Focused Exam Date: 12/17/21 Sepsis Focused Exam Time: 19:32 Sepsis Focused Exam Complete: Yes Vital Signs & RN Notes Reviewed: Yes Capillary Refill: > 2 Seconds: Fingers, Toes Peripheral Pulses: Weak: Radial (R), Radial (L) Skin Color: Mottled (Right chest) Respiratory Exam: rales (Right-sided) Cardiovascular Exam: tachycardia Medical Decision Making - Lab Data Result diagrams: 12/17/21 18:28 12/17/21 18:28 Lab Results 12/17/21 12/17/21 12/17/21 Range/Units 17:46 18:05 18:28 WBC 8.7 (3.8-10.6) k/uL RBC 3.63 L (3.80-5.40) m/uL Hgb 11.7 (11.4-16.0) gm/dL Hct 41.7 (34.0-46.0) % MCV 114.9 H (80.0-100.0) fL MCH 32.2 (25.0-35.0) pg MCHC 28.0 L (31.0-37.0) g/dL RDW 14.6 (11.5-15.5) % Plt Count 183 (150-450) k/uL MPV 12.0 Neutrophils % Not Reportable Neutrophils % (Manual) 26 % Band Neuts % (Manual) 12 % Lymphocytes % Not Reportable Lymphocytes % (Manual) 33 % Monocytes % Not Reportable Monocytes % (Manual) 18 % Eosinophils % Not Reportable Basophils % Not Reportable Metamyelocytes % 11 % Neutrophils # Not Reportable Neutrophils # (Manual) 3.30 (1.3-7.7) k/uL Lymphocytes # Not Reportable Lymphocytes # (Manual) 2.87 (1.0-4.8) k/uL Monocytes # Not Reportable Monocytes # (Manual) 1.57 H (0-1.0) k/uL Eosinophils # Not Reportable Basophils # Not Reportable Metamyelocytes # (Man) 0.96 H (0) k/uL Nucleated RBCs 3 H (0-0) /100 WBC Manual Slide Review Performed Hypochromasia Marked Macrocytosis Marked A PT (9.0-12.0) sec INR (<1.2) APTT (22.0-30.0) sec Sample Site ABG pH (7.35-7.45) ABG pCO2 (35-45) mmHg ABG pO2 (83-108) mmHg ABG HCO3 (21-25) mmol/L ABG Total CO2 (19-24) mmol/L ABG O2 Saturation (94-97) % ABG Base Excess mmol/L Gilbert Test FiO2 % Sodium (137-145) mmol/L Potassium (3.5-5.1) mmol/L Chloride (98-107) mmol/L Carbon Dioxide (22-30) mmol/L Anion Gap mmol/L BUN (7-17) mg/dL Creatinine (0.52-1.04) mg/dL Est GFR (CKD-EPI)AfAm (>60 ml/min/1.73 sqM) Est GFR (CKD-EPI)NonAf (>60 ml/min/1.73 sqM) Glucose (74-99) mg/dL POC Glucose (mg/dL) 62 L 102 (70-110) mg/dL POC Glu Railcar Carpenter Prakash Childers Rachel Plasma Lactic Acid Jasper (0.7-2.0) mmol/L Calcium (8.4-10.2) mg/dL Total Bilirubin (0.2-1.3) mg/dL AST (14-36) U/L ALT (4-34) U/L Alkaline Phosphatase (38-126) U/L Creatine Kinase (30-135) U/L Troponin I (0.000-0.034) ng/mL Total Protein (6.3-8.2) g/dL Albumin (3.5-5.0) g/dL Urine Color Urine Appearance (Clear) Urine pH (5.0-8.0) Ur Specific [place] (1.001-1.035) Urine Protein (Negative) Urine Glucose (UA) (Negative) Urine Ketones (Negative) Urine Blood (Negative) Urine Nitrite (Negative) Urine Bilirubin (Negative) Urine Urobilinogen (<2.0) mg/dL Ur Leukocyte Esterase (Negative) Urine RBC (0-5) /hpf Urine WBC (0-5) /hpf Urine WBC Clumps (None) /hpf Ur Squamous Epith Cells (0-4) /hpf Urine Bacteria (None) /hpf Hyaline Casts (0-2) /lpf Urine Mucus (None) /hpf Coronavirus (PCR) (Not Detectd) Influenza Type A RNA (Not Detectd) Influenza Type B (PCR) (Not Detectd) 12/17/21 12/17/21 12/17/21 Range/Units 18:28 18:28 18:28 WBC (3.8-10.6) k/uL RBC (3.80-5.40) m/uL Hgb (11.4-16.0) gm/dL Hct (34.0-46.0) % MCV (80.0-100.0) fL MCH (25.0-35.0) pg MCHC (31.0-37.0) g/dL RDW (11.5-15.5) % Plt Count (150-450) k/uL MPV Neutrophils % Neutrophils % (Manual) % Band Neuts % (Manual) % Lymphocytes % Lymphocytes % (Manual) % Monocytes % Monocytes % (Manual) % Eosinophils % Basophils % Metamyelocytes % % Neutrophils # Neutrophils # (Manual) (1.3-7.7) k/uL Lymphocytes # Lymphocytes # (Manual) (1.0-4.8) k/uL Monocytes # Monocytes # (Manual) (0-1.0) k/uL Eosinophils # Basophils # Metamyelocytes # (Man) (0) k/uL Nucleated RBCs (0-0) /100 WBC Manual Slide Review Hypochromasia Macrocytosis PT 17.6 H (9.0-12.0) sec INR 1.7 H (<1.2) APTT 33.4 H (22.0-30.0) sec Sample Site ABG pH (7.35-7.45) ABG pCO2 (35-45) mmHg ABG pO2 (83-108) mmHg ABG HCO3 (21-25) mmol/L ABG Total CO2 (19-24) mmol/L ABG O2 Saturation (94-97) % ABG Base Excess mmol/L Gilbert Test FiO2 % Sodium 134 L (137-145) mmol/L Potassium 6.6 H* (3.5-5.1) mmol/L Chloride 96 L (98-107) mmol/L Carbon Dioxide 9 L* (22-30) mmol/L Anion Gap 29 mmol/L BUN 59 H (7-17) mg/dL Creatinine 4.01 H (0.52-1.04) mg/dL Est GFR (CKD-EPI)AfAm 12 (>60 ml/min/1.73 sqM) Est GFR (CKD-EPI)NonAf 11 (>60 ml/min/1.73 sqM) Glucose 496 H (74-99) mg/dL POC Glucose (mg/dL) (70-110) mg/dL POC Glu Railcar Carpenter ID Plasma Lactic Acid [place] (0.7-2.0) mmol/L Calcium 9.7 (8.4-10.2) mg/dL Total Bilirubin 0.9 (0.2-1.3) mg/dL AST 128 H (14-36) U/L ALT 38 H (4-34) U/L Alkaline Phosphatase 97 (38-126) U/L Creatine Kinase 2284 H* (30-135) U/L Troponin I 2.510 H* (0.000-0.034) ng/mL Total Protein 4.8 L (6.3-8.2) g/dL Albumin 2.7 L (3.5-5.0) g/dL Urine Color Urine Appearance (Clear) Urine pH (5.0-8.0) Ur Specific [place] (1.001-1.035) Urine Protein (Negative) Urine Glucose (UA) (Negative) Urine Ketones (Negative) Urine Blood (Negative) Urine Nitrite (Negative) Urine Bilirubin (Negative) Urine Urobilinogen (<2.0) mg/dL Ur Leukocyte Esterase (Negative) Urine RBC (0-5) /hpf Urine WBC (0-5) /hpf Urine WBC Clumps (None) /hpf Ur Squamous Epith Cells (0-4) /hpf Urine Bacteria (None) /hpf Hyaline Casts (0-2) /lpf Urine Mucus (None) /hpf Coronavirus (PCR) (Not Detectd) Influenza Type A RNA (Not Detectd) Influenza Type B (PCR) (Not Detectd) 12/17/21 12/17/21 12/17/21 Range/Units 18:28 18:28 18:28 WBC (3.8-10.6) k/uL RBC (3.80-5.40) m/uL Hgb (11.4-16.0) gm/dL Hct (34.0-46.0) % MCV (80.0-100.0) fL MCH (25.0-35.0) pg MCHC (31.0-37.0) g/dL RDW (11.5-15.5) % Plt Count (150-450) k/uL MPV Neutrophils % Neutrophils % (Manual) % Band Neuts % (Manual) % Lymphocytes % Lymphocytes % (Manual) % Monocytes % Monocytes % (Manual) % Eosinophils % Basophils % Metamyelocytes % % Neutrophils # Neutrophils # (Manual) (1.3-7.7) k/uL Lymphocytes # Lymphocytes # (Manual) (1.0-4.8) k/uL Monocytes # Monocytes # (Manual) (0-1.0) k/uL Eosinophils # Basophils # Metamyelocytes # (Man) (0) k/uL Nucleated RBCs (0-0) /100 WBC Manual Slide Review Hypochromasia Macrocytosis PT (9.0-12.0) sec INR (<1.2) APTT (22.0-30.0) sec Sample Site ABG pH (7.35-7.45) ABG pCO2 (35-45) mmHg ABG pO2 (83-108) mmHg ABG HCO3 (21-25) mmol/L ABG Total CO2 (19-24) mmol/L ABG O2 Saturation (94-97) % ABG Base Excess mmol/L Gilbert Test FiO2 % Sodium (137-145) mmol/L Potassium (3.5-5.1) mmol/L Chloride (98-107) mmol/L Carbon Dioxide (22-30) mmol/L Anion Gap mmol/L BUN (7-17) mg/dL Creatinine (0.52-1.04) mg/dL Est GFR (CKD-EPI)AfAm (>60 ml/min/1.73 sqM) Est GFR (CKD-EPI)NonAf (>60 ml/min/1.73 sqM) Glucose (74-99) mg/dL POC Glucose (mg/dL) (70-110) mg/dL POC Glu Railcar Carpenter ID Plasma Lactic Acid Ajsper 23.4 H* (0.7-2.0) mmol/L Calcium (8.4-10.2) mg/dL Total Bilirubin (0.2-1.3) mg/dL AST (14-36) U/L ALT (4-34) U/L Alkaline Phosphatase (38-126) U/L Creatine Kinase (30-135) U/L Troponin I (0.000-0.034) ng/mL Total Protein (6.3-8.2) g/dL Albumin (3.5-5.0) g/dL Urine Color Urine Appearance (Clear) Urine pH (5.0-8.0) Ur Specific [place] (1.001-1.035) Urine Protein (Negative) Urine Glucose (UA) (Negative) Urine Ketones (Negative) Urine Blood (Negative) Urine Nitrite (Negative) Urine Bilirubin (Negative) Urine Urobilinogen (<2.0) mg/dL Ur Leukocyte Esterase (Negative) Urine RBC (0-5) /hpf Urine WBC (0-5) /hpf Urine WBC Clumps (None) /hpf Ur Squamous Epith Cells (0-4) /hpf Urine Bacteria (None) /hpf Hyaline Casts (0-2) /lpf Urine Mucus (None) /hpf Coronavirus (PCR) Not Detected (Not Detectd) Influenza Type A RNA Not Detected (Not Detectd) Influenza Type B (PCR) Not Detected (Not Detectd) 12/17/21 12/17/21 12/17/21 Range/Units 18:46 18:53 19:11 WBC (3.8-10.6) k/uL RBC (3.80-5.40) m/uL Hgb (11.4-16.0) gm/dL Hct (34.0-46.0) % MCV (80.0-100.0) fL MCH (25.0-35.0) pg MCHC (31.0-37.0) g/dL RDW (11.5-15.5) % Plt Count (150-450) k/uL MPV Neutrophils % Neutrophils % (Manual) % Band Neuts % (Manual) % Lymphocytes % Lymphocytes % (Manual) % Monocytes % Monocytes % (Manual) % Eosinophils % Basophils % Metamyelocytes % % Neutrophils # Neutrophils # (Manual) (1.3-7.7) k/uL Lymphocytes # Lymphocytes # (Manual) (1.0-4.8) k/uL Monocytes # Monocytes # (Manual) (0-1.0) k/uL Eosinophils # Basophils # Metamyelocytes # (Man) (0) k/uL Nucleated RBCs (0-0) /100 WBC Manual Slide Review Hypochromasia Macrocytosis PT (9.0-12.0) sec INR (<1.2) APTT (22.0-30.0) sec Sample Site rfem ABG pH <6.80 L* (7.35-7.45) ABG pCO2 35 (35-45) mmHg ABG pO2 129 H (83-108) mmHg ABG HCO3 4 L* (21-25) mmol/L ABG Total CO2 5 L (19-24) mmol/L ABG O2 Saturation 94.1 (94-97) % ABG Base Excess -32.0 mmol/L Gilbert Test Yes FiO2 100 % Sodium (137-145) mmol/L Potassium (3.5-5.1) mmol/L Chloride (98-107) mmol/L Carbon Dioxide (22-30) mmol/L Anion Gap mmol/L BUN (7-17) mg/dL Creatinine (0.52-1.04) mg/dL Est GFR (CKD-EPI)AfAm (>60 ml/min/1.73 sqM) Est GFR (CKD-EPI)NonAf (>60 ml/min/1.73 sqM) Glucose (74-99) mg/dL POC Glucose (mg/dL) 74 (70-110) mg/dL POC Glu Railcar Carpenter ID Uribe, Prakash Plasma Lactic Acid [place] (0.7-2.0) mmol/L Calcium (8.4-10.2) mg/dL Total Bilirubin (0.2-1.3) mg/dL AST (14-36) U/L ALT (4-34) U/L Alkaline Phosphatase (38-126) U/L Creatine Kinase (30-135) U/L Troponin I (0.000-0.034) ng/mL Total Protein (6.3-8.2) g/dL Albumin (3.5-5.0) g/dL Urine Color Dark Brown Urine Appearance Turbid H (Clear) Urine pH 5.0 (5.0-8.0) Ur Specific [place] 1.028 (1.001-1.035) Urine Protein 2+ H (Negative) Urine Glucose (UA) Trace H (Negative) Urine Ketones Trace H (Negative) Urine Blood Small H (Negative) Urine Nitrite Negative (Negative) Urine Bilirubin 1+ H (Negative) Urine Urobilinogen 3.0 (<2.0) mg/dL Ur Leukocyte Esterase Trace H (Negative) Urine RBC 7 H (0-5) /hpf Urine WBC 78 H (0-5) /hpf Urine WBC Clumps Few H (None) /hpf Ur Squamous Epith Cells 9 H (0-4) /hpf Urine Bacteria Few H (None) /hpf Hyaline Casts 28 H (0-2) /lpf Urine Mucus Few H (None) /hpf Coronavirus (PCR) (Not Detectd) Influenza Type A RNA (Not Detectd) Influenza Type B (PCR) (Not Detectd) - Radiology Data Radiology results: image reviewed (Chest x-ray shows extensive right-sided pneumonia. Repeat x-ray shows continued pneumonia. Endotracheal tube in place.) Critical Care Time Critical Care Time: Yes Total Critical Care Time: 67 Disposition Clinical Impression: Respiratory failure, Septic shock, Pneumonia Disposition: ADMITTED IP TO THIS HOSP Condition: Critical Is patient prescribed a controlled substance at d/c from ED?: No Time of Disposition: 19:34
[2021-12-17 17:58] VITALS: TEMP 99.3
[2021-12-17 18:06] LABS: Glucose,Whole Blood 102 mg/dL (70-110)
[2021-12-17] MEDS ORDERED: SODIUM CHLORIDE 0.9% 1,000 ML IV STA ×2 (18:07→20:13)
[2021-12-17] MEDS ORDERED: AZITHROMYCIN 500 MG in SODIUM CHLORIDE 0.9% 250 ML IVPB STA (18:08)
[2021-12-17] MEDS ORDERED: PNEUMONIA PROTOCOL UTILIZED 1 EACH MISC PO PRN (18:08)
--- NOTE | 2021-12-17 18:23 | XR ---
EXAMINATION TYPE: XR chest 1V portable DATE OF EXAM: 12/17/2021 COMPARISON: 08/20/2021 HISTORY: Pneumonia TECHNIQUE: Single view FINDINGS: There is some diffuse airspace infiltrate in the right lung. There is coarse interstitial i nfiltrate in the left lung. Heart is borderline enlarged. No pleural effusion. IMPRESSION: Extensive right-sided pneumonia which is mostly new compared to old exam. There is inters titial density left lung consistent with some pulmonary fibrosis without change. No pleural fluid see n to suggest heart failure.
[2021-12-17] MEDS ORDERED: VANCOMYCIN IV PER PHARMACY 1 EACH MISC MISCELLANE PRN (18:28)
[2021-12-17] MEDS ORDERED: SODIUM CHLORIDE 0.9% 250 ML IV STA ×2 (18:29→18:57)
[2021-12-17] MEDS ORDERED: IPRATROPIUM-ALBUTEROL 3 ML NEB INHALATION PRN (18:29)
[2021-12-17] MEDS ORDERED: NOREPINEPHRINE 32 MG in SODIUM CHLORIDE 0.9% 218 ML IV ONE (18:30)
[2021-12-17] MEDS ORDERED: ATORVASTATIN 20 MG TAB PO STA (18:39)
[2021-12-17] MEDS ORDERED: ASPIRIN 81 MG PO STA (18:39)
[2021-12-17 18:45] LABS: HCT 41.7 % (34.0-46.0); HGB 11.7 gm/dL (11.4-16.0); Hypochromasia Marked; MCH 32.2 pg (25.0-35.0); MCV 114.9 fL (80.0-100.0); Macrocytosis Marked; Platelet Count 183 k/uL (150-450); RBC 3.63 m/uL (3.80-5.40); RDW 14.6 % (11.5-15.5)
[2021-12-17] MEDS ORDERED: VANCOMYCIN 750 MG in SODIUM CHLORIDE 0.9% 250 ML IVPB ONE (18:45)
[2021-12-17] MEDS ORDERED: ACETAMINOPHEN SUPPOSITORY 650 MG SUPP RECTAL PRN (18:50)
[2021-12-17 18:54] LABS: Albumin 2.7 g/dL (3.5-5.0); Calcium 9.7 mg/dL (8.4-10.2); Total Bilirubin 0.9 mg/dL (0.2-1.3); Total Protein 4.8 g/dL (6.3-8.2)
[2021-12-17 18:56] LABS: INR 1.7 (<1.2); Partial Thromboplastin Time 33.4 sec (22.0-30.0); Prothrombin Time 17.6 sec (9.0-12.0)
[2021-12-17 18:59] LABS: Glucose,Whole Blood 74 mg/dL (70-110)
[2021-12-17 19:03] VITALS: PULSE 76; RESP 24
--- NOTE | 2021-12-17 19:03 | XR ---
EXAMINATION TYPE: XR chest 1V portable DATE OF EXAM: 12/17/2021 COMPARISON: The HISTORY: Respiratory failure TECHNIQUE: Single view FINDINGS: Endotracheal tube is 4 cm from the leah. There is extensive airspace infiltrate in the ri ght lung. There is some coarse interstitial infiltrate in the left lung. No obvious heart failure. No pleural effusion. There is pleural thickening at the lung apices. IMPRESSION: Endotracheal tube in good position. Extensive right-sided pulmonary infiltrates without c hange.
[2021-12-17 19:07] LABS: Appearance,Urine Turbid (Clear); Bacteria,Urine Few /hpf; Bilirubin,Urine 1+ (Negative); Blood,Urine Small (Negative); Color,Urine Dark Brown; Glucose,Urine (UA) Trace (Negative); Hyaline Casts,Urine 28 /lpf (0-2); Ketones,Urine Trace (Negative); Leukocyte Esterase,Urine Trace (Negative); Mucus,Urine Few /hpf; Nitrite,Urine Negative (Negative); Protein,Urine 2+ (Negative); RBC,Urine 7 /hpf (0-5); Specific Gravity,Urine 1.028 (1.001-1.035); Squamous Epithelial Cell,Urine 9 /hpf (0-4); WBC,Urine 78 /hpf (0-5)
[2021-12-17 19:09] LABS: Potassium 6.6 mmol/L (3.5-5.1)
[2021-12-17] MEDS ORDERED: SODIUM BICARB 8.4% 50 ML SYR (1 MEQ/ML) IV STA (19:12)
[2021-12-17] MEDS ORDERED: ALBUTEROL NEB (CONC) 2.5 MG/0.5 ML INHALATION ONE (19:13)
[2021-12-17 19:14] LABS: ABG Oxygen Saturation 94.1 % (94-97); ABG PCO2 35 mmHg (35-45); ABG PO2 129 mmHg (83-108); ABG TCO2 5 mmol/L (19-24); Allen Test Performed? Yes
[2021-12-17] MEDS ORDERED: NALOXONE 0.4 MG/ML 1 ML VIAL IV PRN (19:19)
[2021-12-17 19:20] LABS: ABG HCO3 4 mmol/L (21-25); ABG PH <6.80 (7.35-7.45)
[2021-12-17 19:26] LABS: Glucose,Whole Blood 319 mg/dL (70-110)
[2021-12-17 19:28] LABS: Band Neutrophils % 12 %; Lymphocytes # (M) 2.87 k/uL (1.0-4.8); Metamyelocytes # (M) 0.96 k/uL (0); Metamyelocytes % 11 %; Monocytes # (M) 1.57 k/uL (0-1.0); Neutrophils % (M) 26 %; Nucleated Red Blood Cells 3 /100 WBC (0-0); Total Cells Counted 100; WBC 8.7 k/uL (3.8-10.6)
--- NOTE | 2021-12-17 19:40 | XR ---
EXAMINATION TYPE: XR chest 1V portable DATE OF EXAM: 12/17/2021 COMPARISON: Today HISTORY: Tube placed TECHNIQUE: Single view FINDINGS: the endotracheal tube is 3.6 cm from the leah. There is moderate diffuse airspace infiltrate in the right lung. There is coarse interstitial infiltrate in the left lung. No pleural effusion. There is pleural thickening at the lung apices. There is gastric tube and the tip is over the body of the stom ach. IMPRESSION: Tubing in good position. Extensive airspace infiltrate right lung without change.
[2021-12-17] MEDS ORDERED: PANTOPRAZOLE 40 MG/10 ML VIAL IV SCH (20:00)
[2021-12-17] MEDS ORDERED: IPRATROPIUM-ALBUTEROL 3 ML NEB INHALATION SCH (20:00)
[2021-12-17] MEDS ORDERED: DEXTROSE 5% IN WATER 1,000 ML with SODIUM BICARB (1 MEQ/ML) 150 ML IV SCH (20:00)
[2021-12-17] MEDS ORDERED: CALCIUM GLUCONATE IN NACL 1 GM in SALINE 1 100ML.BAG IVPB ONE (20:00)
[2021-12-17] MEDS ORDERED: CHLORHEXIDINE GLUCONATE 15 ML CUP MUCOUS MEM SCH (21:00)
[2021-12-17] MEDS ORDERED: SODIUM CHLORIDE 0.9% 50 ML with VASOPRESSIN 20 UNIT IVPB SCH ×2 (21:00)
[2021-12-17] MEDS ORDERED: ATORVASTATIN 40 MG TAB PO SCH (21:00)
[2021-12-17] MEDS ORDERED: CEFEPIME 1 GM in SODIUM CHLORIDE 0.9% 50 ML IVPB SCH (21:00)
[2021-12-17 21:04] LABS: Glucose,Whole Blood 231 mg/dL (70-110)
[2021-12-17] MEDS ORDERED: SODIUM BICARB 8.4% 50 ML SYR (1 MEQ/ML) ONE (21:08)
[2021-12-17] MEDS ORDERED: EPINEPHrine 10 ML SYRINGE (0.1 MG/ML) ONE (21:08)
[2021-12-17] MEDS ORDERED: CALCIUM CHLORIDE 100 MG/ML 10 ML SYRINGE ONE (21:08)
--- NOTE | 2021-12-17 23:40 | P.EN ---
CODE BLUE note Activated at 2109. Arrived at the scene shortly after. Reviewed the chart and discussed the case with RN. The patient was undergoing CPR upon arrival. She reportedly presented to the emergency room for altered mentation. She susbequently decompensated into respiratory failure requiring intubation and developed septic shock. She was started on IV pressors and given IV antibiotics and was admitted to the medical ICU. Shortly after arrival to the unit, the patient reportedly developed worsening hypotension and lost her pulse. ACS protocol was immediately initiated with PEA on the monitor. Return of spontaneous circulation was achieved at 2118 with subsequent PEA at 2125. The patient received a total of epinephrine IV push 6, sodium bicarbonate x1, and c alcium chloride 1. The patient's family was notified. The patient's sister Gretchen arrived at the scene and requested that CPR be halted at 2132. The patient's fianc arrived shortly after and was in agreement with halting CPR. The patient's primary team and paperhanger assistant were notified. Please refer to the code sheet for further details. Total time spent providing critical care for this patient including coordination of care: 35 minutes
[2021-12-18 00:55] VITALS: BP 44/23
[2021-12-18] MEDS ORDERED: LEVOTHYROXINE 50 MCG TAB PO SCH (06:30)
[2021-12-18] MEDS ORDERED: AZITHROMYCIN 500 MG TAB PO SCH (09:00)
[2021-12-18] MEDS ORDERED: VANCOMYCIN 750 MG in SODIUM CHLORIDE 0.9% 250 ML IVPB ONE (18:00)
== END 2021-12-17 22:00 | disposition expired | DRG 871 ==
LOC: EC 17:43 → 2SICU 19:21
PROVIDERS: ADMIT Family Medicine; ATTEND Family Medicine
PROC: 5A1935Z Respiratory Ventilation, Less than 24 Consecutive Hours (ICD-10-PCS; principal; 2021-12-17)
PROC: 5A12012 Performance of Cardiac Output, Single, Manual (ICD-10-PCS; 2021-12-17)
PROC: 0BH17EZ Insertion of Endotracheal Airway into Trachea, Via Natural or Artificial Opening (ICD-10-PCS; 2021-12-17)
PROC: 06HM33Z Insertion of Infusion Device into Right Femoral Vein, Percutaneous Approach (ICD-10-PCS; 2021-12-17)
PROC: B54BZZA Ultrasonography of Right Lower Extremity Veins, Guidance (ICD-10-PCS; 2021-12-17)
PROC: 3E033XZ Introduction of Vasopressor into Peripheral Vein, Percutaneous Approach (ICD-10-PCS; 2021-12-17)
DX: A41.9 Sepsis, unspecified organism (principal); J18.9 Pneumonia, unspecified organism; R65.21 Severe sepsis with septic shock; J44.0 Chronic obstructive pulmonary disease with (acute) lower respiratory infection; J96.11 Chronic respiratory failure with hypoxia; E87.2 Acidosis; Z20.822 Contact with and (suspected) exposure to COVID-19; K58.9 Irritable bowel syndrome, unspecified; I25.10 Atherosclerotic heart disease of native coronary artery without angina pectoris; E06.3 Autoimmune thyroiditis; E78.5 Hyperlipidemia, unspecified; F17.210 Nicotine dependence, cigarettes, uncomplicated; Z66 Do not resuscitate; M41.84 Other forms of scoliosis, thoracic region; Z79.890 Hormone replacement therapy; Z80.1 Family history of malignant neoplasm of trachea, bronchus and lung; Z80.3 Family history of malignant neoplasm of breast; Z85.3 Personal history of malignant neoplasm of breast; Z90.710 Acquired absence of both cervix and uterus; Z88.2 Allergy status to sulfonamides; Z90.49 Acquired absence of other specified parts of digestive tract
CPT/HCPCS: 31500; 36415; 36556; 36600; 71045; 80053; 81001; 82550; 82805; 83605; 84484; 85025; 85610; 85730; 87040; 87070; 87077; 87086; 87186; 87205; 87502; 87635; 92950; 93005; 94002; 96374; 96375; 99291